=== PATIENT | female | born 1970 | race Caucasian/White ===

== ENCOUNTER 2018-09-13 14:31 | Inpatient (IN) | payer OTHER ==
[~2018-09-13] VITALS: Ht 157.5 cm; Wt 114.5 kg
[2018-09-13 14:36] VITALS: BP 190/99
[2018-09-13] MEDS ORDERED: PLAVIX 75 MG TA75 M1 PO (14:39)
[2018-09-13] MEDS ORDERED: METFORMIN HCL500 MG PO (14:39)
[2018-09-13] MEDS ORDERED: LIPITOR 20 MG T20 M1 PO (14:40)
[2018-09-13] MEDS ORDERED: KAPSPARGO SPRIN25 MG PO (14:40)
[2018-09-13 14:57] LABS: ABSOLUTE BASOPHILS 0.1 thou/uL (0.0-0.2); ABSOLUTE EOSINOPHILS 0.1 thou/uL (0.0-0.7); ABSOLUTE LYMPHOCYTES 2.9 thou/uL (0.8-5.3); ABSOLUTE MONOCYTES 0.6 thou/uL (0.0-1.2); ABSOLUTE NEUTROPHILS 2.8 thou/uL (1.6-8.1); BASOPHILS 1.3 %; EOSINOPHILS 1.5 %; HEMATOCRIT 40.3 % (37.0-47.0); HEMOGLOBIN 13.8 gm/dL (12.0-15.0); LYMPHOCYTES 44.7 %; MCH 27.1 pg (26.0-34.0); MCHC 34.3 g/dL (28.0-37.0); MONOCYTES 9.2 %; MPV 6.9 fl. (7.2-11.1); NUCLEATED RBCS 0 /100WBC; PLATELET COUNT* 163 thou/uL (150-400); POLYS 43.3 %; RBC 5.11 mil/uL (4.20-5.00); RDW-CV 14.9 % (10.5-14.5); WBC 6.4 thou/uL (4.0-11.0)
[2018-09-13 15:04] LABS: ANION GAP 13 mmol/L (7-16); BUN 13 mg/dL (7-18); CALCIUM 8.5 mg/dL (8.5-10.1); CHLORIDE 102 mmol/L (98-107); CO2 25 mmol/L (21-32); CREATININE 0.7 mg/dL (0.6-1.3); GLUCOSE 284 mg/dL (70-99); POTASSIUM 3.8 mmol/L (3.5-5.1); SODIUM 140 mmol/L (136-145)
[2018-09-13 15:15] LABS: ALBUMIN 3.6 g/dL (3.4-5.0); ALKALINE PHOSPHATASE 80 U/L (46-116); LIPASE 117 U/L (73-393); MAGNESIUM 1.4 mg/dL (1.8-2.4); NT-PRO BRAIN NAT PEPTIDE 44 pg/mL (<300); SGOT 25 U/L (15-37); SGPT 44 U/L (30-65); TOTAL BILIRUBIN 0.3 mg/dL (<0.1-1.0); TOTAL PROTEIN 6.7 g/dL (6.4-8.2); TROPONIN-I LEVEL <0.06 ng/mL (<0.06)
[2018-09-13 17:55] VITALS: BP 168/88
[2018-09-13 18:00] VITALS: BP 180/94
[2018-09-13 19:15] VITALS: BP 185/84
[2018-09-13 20:39] LABS: AMP/METHAMP Negative (Negative); BARBITURATES Negative (Negative); BENZODIAZEPINES Negative (Negative); COCAINE Negative (Negative); METHADONE Negative (Negative); OPIATES Negative (Negative); PCP Negative (Negative); THC Negative (Negative)
[2018-09-14] VITALS (17 sets, daily range): BP systolic 142–191; BP diastolic 63–107
[2018-09-14 04:46] LABS: ABSOLUTE EOSINOPHILS 0.2 thou/uL (0.0-0.7); ABSOLUTE LYMPHOCYTES 2.7 thou/uL (0.8-5.3); ABSOLUTE MONOCYTES 0.8 thou/uL (0.0-1.2); ABSOLUTE NEUTROPHILS 2.8 thou/uL (1.6-8.1); BASOPHILS 0.6 %; EOSINOPHILS 2.5 %; HEMATOCRIT 36.8 % (37.0-47.0); HEMOGLOBIN 12.6 gm/dL (12.0-15.0); MCH 27.3 pg (26.0-34.0); MCHC 34.1 g/dL (28.0-37.0); MCV 80.1 fL (80.0-100.0); MONOCYTES 12.1 %; MPV 7.1 fl. (7.2-11.1); NUCLEATED RBCS 0 /100WBC; PLATELET COUNT* 121 thou/uL (150-400); POLYS 43.8 %; RDW-CV 14.9 % (10.5-14.5); WBC 6.5 thou/uL (4.0-11.0)
[2018-09-14 04:52] LABS: CALCIUM 8.6 mg/dL (8.5-10.1); CREATININE 0.6 mg/dL (0.6-1.3); POTASSIUM 3.9 mmol/L (3.5-5.1)
--- NOTE | 2018-09-14 13:02 | CARD ---
[address] [address] CARDIAC CATH REPORT Name: DORA BLAND PADMINI Room: 220-[facility] IN M.R.#: [id number] Admission: 09/13/18 Attend Phys: Gamal Lemus MD Discharge: Date of : 70 Report #: [id number] THIS REPORT FOR: //name// APPROVED REPORT Study performed: 09/14/2018 10:03:58 Patient Details Patient Status: In-Patient Room #: 220 The patient is a 48 year-old female Event Personnel Eliecer Canales Optometry Professor, Azeb Raman Textiles Sales Representative , Rashid Rizzo (R) Monitor, Wilbur Moyer Scrub Procedures Performed Left Heart Cath w/or w/o Coronaries Indication Unstable angina Risk Factors Hypercholesterolemia, Hypertension, Diabetes Previous Procedures/Diagnoses Previous PCI Procedure Narrative The patient was brought electively to the Cardiac Catheterization Laboratory and was prepped and draped in a sterile manner. The right femoral was infiltrated with 1% Lidocaine subcutaneous anesthesia. A 6fr Ultimum Sheath sheath was inserted into the right femoral artery. Coronary angiography was performed using coronary diagnostic catheters. The right coronary system was accessed and visualized with a Diagnostic JR4 catheter. The left coronary system was accessed and visualized with a Diagnostic JL4 catheter. The left ventricle was accessed and visualized with a Diagnostic PC: Pig 6fr catheter. Left ventricular/Aortic Valve gradient assessed via catheter pullback. Left ventriculogram was performed in JOHNS projection. Closure device was deployed with a 6 Fr Mynx 6Fr/7Fr. The patient tolerated the procedure well and there were no complications associated with the procedure. There was no hematoma. Intraoperative Conscious Sedation Sedation start time: 10:57 Case end Time: [place] [address] CARDIAC CATH REPORT Name: BALDODORA ANN Room: [address] IN [facility]#: [id number] Admission: 09/13/18 Attend Phys: Gamal Lemus MD Discharge: Date of : 70 Report #: [id number] 11:32 Fentanyl 50 mcg Versed 4 mg Fluoro Time: 3.3 minutes Dose: DAP 66607 cGycm2 914 mGy Contrast Type and Amount: Omnipaque 100 ml Coronary Angiography The patient's coronary anatomy is co- dominant. Diagnostic Cath Left Main 0% stenosis LAD 0% stenosis Circumflex proximal stent with 0% stenosis Right Coronary long stent noted in mid rca with 50% proximal restenosis and 50% distal restenosis R PDA 50% mid stenosis Left Ventriculography The left ventricular ejection fraction is estimated to be 55-60%. Left ventricular wall motion abnormalities are not present. There is no mitral insufficiency. Hemodynamics The aortic pressure is 160/86 mmHg with a mean of 118 mmHg. The left ventricular pressure is 171/12 mmHg with a mean of mmHg. The left ventricular end diastolic pressure is 20 mmHg. There was no gradient across the aortic valve upon pullback. Pullback from the left ventricle to the aorta revealed no gradient across the aortic valve. Conclusion 1. no significant restenosis noted of stents in the proximal circumflex and mid rca 2. LVEF 55-60% 3. suspect noncardiac chest pain Recommendations Cardiac Rehabilitation Referral Aggressive Medical Therapy <ELECTRONICALLY SIGNED> By: Eliecer Canales MD, [facility] 09/14/18 1301 1301 1301Dmainor Canales MD, FAC /INF
--- NOTE | 2018-09-14 13:05 | CON ---
[address] [address] CONSULTATION Name: DORA BLAND Room: [address] ADM IN M.R.#: [id number] Admission: 09/13/18 Attend Phys: Gamal Lemus MD Discharge: Date of : 70 Report #: [id number] THIS REPORT FOR: //name// CC: Gamal Lemus [facility] physician/PCP DATE OF SERVICE: 09/14/2018 HISTORY OF PRESENT ILLNESS: The patient is a 48-year-old white female who I was asked to see in the hospital today after she complained of chest pain. The patient has an extensive past medical history. Unfortunately, none of her old records are available. The patient apparently had 2 coronary artery stents placed in 2011. She had another stent placed in 2015. Her last stent was placed in 2017. These have all been done in [place]. She recently just traveled from [place] to [place] to move. Her is retired and they drove. There are now staying in a hotel until they rent an apartment. She was doing well until yesterday about noon, she felt a pain in her chest, went down her left arm, she became short of breath, nauseated, and diaphoretic. The pain tended to wax and wane. She came to the hospital and was admitted. I was asked to see her for further evaluation and treatment. She denied the pain being related to food. She has had no bleeding. Denied any cough. She denies exertional dyspnea. She notes occasional skipped heartbeat, but no syncope. PAST MEDICAL HISTORY: She has had tubal ligation, appendectomy, tonsillectomy. She has a history of hypertension, diabetes, hyperlipidemia. MEDICATIONS: Include Lipitor, Plavix, metformin, metoprolol, Victoza. ALLERGIES: SHE HAS CONTRAST ALLERGY. FAMILY HISTORY: Her mother had a permanent pacemaker. SOCIAL HISTORY: She is . She is on disability because of her heart disease. No smoking, no alcohol abuse. REVIEW OF SYSTEMS: She is overweight, being 5 feet 2 inches, 250 pounds. She has had no history of stroke, asthma, peptic ulcer disease. She has been told she had an enlarged liver. She has been through menopause. No kidney disease. No psychiatric illness. No chronic skin condition. PHYSICAL EXAMINATION: GENERAL: Revealed an obese young female, lying in bed. She appeared in no acute distress. VITAL SIGNS: Showed blood pressure 140/60, pulse of 60. She is afebrile. HEENT: She was anicteric, conjunctivae pink. Mucous membranes moist. NECK: Veins nondistended. A left carotid [place] [address] CONSULTATION Name: DORA BLAND Room: [address] IN M.R.#: [id number] Admission: 09/13/18 Attend Phys: Gamal Lemus MD Discharge: Date of : 70 Report #: [id number] CHEST: Clear to auscultation. CARDIAC: Regular rate and rhythm. ABDOMEN: Obese. EXTREMITIES: Had no edema. Dorsalis pedis pulse 2+ bilaterally. SKIN: Warm and dry. NEUROLOGIC: Nonfocal. LYMPH: No adenopathy. MUSCULOSKELETAL: No joint effusion. DIAGNOSTIC DATA: Her ECG done yesterday showed a sinus rhythm, nonspecific ST-segment changes. Her workup in the Emergency Room yesterday, she had a portable chest x-ray that showed cardiomegaly, poor inspiration, some atelectasis. LABORATORY DATA: Sodium 140, creatinine 0.6, glucose 261. Liver function studies were normal. Troponin is 0.06. White blood cell count 6.5, hemoglobin 12.6. IMPRESSION AND RECOMMENDATIONS: 1. Unstable angina. Recommend repeat cardiac catheterization. 2. Hypertension. The patient has been on a beta-skylar. 3. Diabetes. 4. Hyperlipidemia. The patient is on a statin drug. 5. Obesity. <ELECTRONICALLY SIGNED> By: Eliecer Canales MD, [facility] 09/14/18 1305 0934 [id number] Canales MD, [facility] /nt
--- NOTE | 2018-09-16 10:38 | EKG ---
[place] [address] ELECTROCARDIOGRAM REPORT Name: DORA BLAND Room: [address] IN R.#: [id number] Admission: 09/13/18 Attend Phys: Gamal Lemus MD Discharge: 09/14/18 Date of : 70 Report #: [id number] THIS REPORT FOR: //name// [facility] ED Test Date: 2018-09-13 Test Time: 14:36:40 Pat Name: DORA BLAND Department: Room: [facility] Gender: F Flakeboard Line Tender: BRENDAN : 1970 Requested By: Ike Ruiz Order Number: [id number] MD: Eliecer Canales Measurements Intervals [place] Rate: 116 P: 64 MS: 154 QRS: -6 QRSD: 97 T: 63 QT: 333 QTc: 463 Interpretive Statements Sinus tachycardia Probable left atrial enlargement Minimal ST depression, lateral leads Baseline wander in lead(s) V2 No previous ECG available for comparison Electronically Signed On 09-16-2018 10:38:15 CDT by Eliecer Canales [email or web address] <ELECTRONICALLY SIGNED> By: Eliecer Canales MD, [facility] 09/16/18 1038 1436 1436 Eliecer Canales MD, [facility] /EPI
--- NOTE | 2018-09-16 10:40 | EKG ---
[place] [address] ELECTROCARDIOGRAM REPORT Name: DORA BLAND Room: [address] DIS IN M.R.#: [id number] Admission: 09/13/18 Attend Phys: Gamal Lemus MD Discharge: 09/14/18 Date of : 70 Report #: [id number] THIS REPORT FOR: //name// [facility] Test Date: 2018-09-13 Test Time: 18:33:38 Pat Name: DORA BLAND Department: Room: [address] Gender: F Coach Professional Athletes: UNKNOWN : 1970 Requested By: Gamal Lemus Order Number: [id number] Dandre MD: Eliecer Canales Measurements Intervals [place] Rate: 102 P: 53 OK: 133 QRS: -13 QRSD: 80 T: 87 QT: 420 QTc: 548 Interpretive Statements Sinus tachycardia with short pr interval Borderline T abnormalities, anterior leads Prolonged QT interval Electronically Signed On 09-16-2018 10:39:56 CDT by Eliecer Canales [email or web address] <ELECTRONICALLY SIGNED> By: Eliecer Canales MD, [facility] 09/16/18 1039 1833 183 Eliecer Canales MD, FAC /EPI
== END 2018-09-14 17:05 | disposition left against medical advice (07) | DRG 287 ==
LOC: M.ERS 14:31 → M.TBA-ER 15:22 → M.2W 17:47
PROVIDERS: Emergency Medicine Emergency Medical Services; ADMIT Internal Medicine
PROC: 4A023N7 Measurement of Cardiac Sampling and Pressure, Left Heart, Percutaneous Approach (ICD-10-PCS; principal; 2018-09-14)
PROC: B2111ZZ Fluoroscopy of Multiple Coronary Arteries using Low Osmolar Contrast (ICD-10-PCS; principal; 2018-09-14)
PROC: B2151ZZ Fluoroscopy of Left Heart using Low Osmolar Contrast (ICD-10-PCS; principal; 2018-09-14)
DX: R07.89 Other chest pain (principal); I25.110 Atherosclerotic heart disease of native coronary artery with unstable angina pectoris; Z68.42 Body mass index [BMI] 45.0-49.9, adult; I10 Essential (primary) hypertension; E11.9 Type 2 diabetes mellitus without complications; E78.00 Pure hypercholesterolemia, unspecified; E66.01 Morbid (severe) obesity due to excess calories; Z53.21 Procedure and treatment not carried out due to patient leaving prior to being seen by health care provider; Z95.5 Presence of coronary angioplasty implant and graft; Z90.49 Acquired absence of other specified parts of digestive tract; Z79.02 Long term (current) use of antithrombotics/antiplatelets; Z76.5 Malingerer [conscious simulation]; Z79.84 Long term (current) use of oral hypoglycemic drugs; Z79.899 Other long term (current) drug therapy; Z88.8 Allergy status to other drugs, medicaments and biological substances; Z91.041 Radiographic dye allergy status; Z82.49 Family history of ischemic heart disease and other diseases of the circulatory system

== ENCOUNTER 2018-09-22 19:35 | Inpatient (IN) | payer OTHER ==
[~2018-09-22] VITALS: Ht 157.5 cm; Wt 111.1 kg
--- NOTE | ~2018-09-22 | CARD ---
[address] [address] CARDIAC CATH REPORT Name: DORA BLAND Room: [address] IN M.R.#: [id number] Admission: 09/22/18 Attend Phys: Nicolas Wilcox Discharge: 09/27/18 Date of : 70 Report #: [id number] THIS REPORT FOR: //name// CC: [facility] physician/PCP German Parmar PROCEDURE: DC cardioversion after transesophageal echocardiogram. INDICATION: Persistent atrial flutter. DESCRIPTION OF PROCEDURE: After informed consent was obtained, a transesophageal echocardiogram was performed and was reported separately. Assuring adequate sedation, the patient then received a single biphasic shock of 300 joules converting from atrial flutter to normal sinus rhythm. The patient tolerated the procedure well without complication. IMPRESSION: 1. Persistent atrial fibrillation. 2. Successful MYRA-guided cardioversion to normal sinus rhythm. By: 1825 [id number] Lance MD, FACC /nt
[~2018-09-22 19:35] MED LIST: LIPITOR 20 MG T20 M1 PO; METFORMIN HCL500 MG PO; PLAVIX 75 MG TA75 M1 PO; TOPROL XL25 MG PO
[2018-09-22 20:04] LABS: ABSOLUTE BASOPHILS 0.1 thou/uL (0.0-0.2); ABSOLUTE EOSINOPHILS 0.1 thou/uL (0.0-0.7); ABSOLUTE LYMPHOCYTES 3.5 thou/uL (0.8-5.3); ABSOLUTE MONOCYTES 0.7 thou/uL (0.0-1.2); ABSOLUTE NEUTROPHILS 3.2 thou/uL (1.6-8.1); BASOPHILS 1.4 %; HEMATOCRIT 39.7 % (37.0-47.0); HEMOGLOBIN 13.5 gm/dL (12.0-15.0); LYMPHOCYTES 46.3 %; MCH 27.2 pg (26.0-34.0); MCHC 33.9 g/dL (28.0-37.0); MCV 80.4 fL (80.0-100.0); MONOCYTES 9.2 %; MPV 7.4 fl. (7.2-11.1); NUCLEATED RBCS 0 /100WBC; PLATELET COUNT* 177 thou/uL (150-400); POLYS 42.1 %; RBC 4.94 mil/uL (4.20-5.00); WBC 7.6 thou/uL (4.0-11.0)
[2018-09-22 20:14] LABS: PROTIME 10.1 Seconds (9.20-11.50)
[2018-09-22 20:16] LABS: ANION GAP 11 mmol/L (7-16); BUN 13 mg/dL (7-18); CALCIUM 9.5 mg/dL (8.5-10.1); CHLORIDE 102 mmol/L (98-107); CO2 26 mmol/L (21-32); CREATININE 0.8 mg/dL (0.6-1.3); GLUCOSE 327 mg/dL (70-99); POTASSIUM 4.6 mmol/L (3.5-5.1); SODIUM 139 mmol/L (136-145)
[2018-09-22 20:28] LABS: ALBUMIN 3.5 g/dL (3.4-5.0); ALKALINE PHOSPHATASE 89 U/L (46-116); NT-PRO BRAIN NAT PEPTIDE 543 pg/mL (<300); SGOT 22 U/L (15-37); SGPT 34 U/L (30-65); TOTAL BILIRUBIN 0.4 mg/dL (<0.1-1.0); TROPONIN-I LEVEL <0.06 ng/mL (<0.06)
[2018-09-22 21:12] LABS: URINE BILIRUBIN NEGATIVE (Negative); URINE BLOOD TRACE (Negative); URINE CLARITY CLEAR; URINE COLOR YELLOW; URINE GLUCOSE-RANDOM 3+ (Negative); URINE KETONES NEGATIVE (Negative); URINE LEUKOCYTES-REFLEX NEGATIVE (Negative); URINE NITRITE-REFLEX NEGATIVE (Negative); URINE PROTEIN 1+ (Negative)
[2018-09-22 23:30] VITALS: BP 130/68
[2018-09-23] VITALS: BP 119/93
[2018-09-23 04:00] VITALS: BP 101/61
--- NOTE | 2018-09-23 05:40 | NUR ---
PATIENT ARRIVED ON THE FLOOR FROM THE ER ABOUT 2330. PATIENT ADMISSION HISTORY AND ASSESSMENT WAS COMPLETED CHARTED. PATIENT REMAINS AFLUTTER ON THE MONITOR 70'S TO 90'S AT REST BUT STILL GETS UP TO 140 WITH ACTIVITY. CARDIZEM DRIP REMAINS AT 10 MG AN HOUR. PATIENT WAS GIVEN MORPHINE ONCE FOR CHEST PAIN. PATIENT GOT DIZZY ON THE WAY BACK TO THE BATHROOM THIS MORNING. VITALS WERE STABLE AND BLOOD SUGAR WAS 277 AT THAT TIME. PATIENT REQUESTED TO BE PUT ON OXYGEN FOR SOA SATS WERE FINE ON ROOM AIR AT 97% BUT PATIENT IS ON 2L PER NC NOW. WILL CONTINUE TO MONITOR.
[2018-09-23 08:21] VITALS: BP 131/93
--- NOTE | 2018-09-23 11:16 | NUR ---
Pt is A&O. Resides at home with her and son. Pt states that she was independent up until last week when she had a cath, now Pt states that her gait is unsteady. No DME. No hx of HH or SNF. Goal is home.
[2018-09-23 11:32] LABS: AMP/METHAMP Negative (Negative); BARBITURATES Negative (Negative); BENZODIAZEPINES Negative (Negative); COCAINE Negative (Negative); METHADONE Negative (Negative); OPIATES POSITIVE (Negative); PCP Negative (Negative); THC Negative (Negative)
[2018-09-23 12:00] VITALS: BP 124/68
--- NOTE | 2018-09-23 12:46 | NUR ---
patient upset. she clamped her cardizem gtt. instructed patient on the importance of not to disturb IV tubing or IV pump and explained the risk of patient harming self if she adjusted the IV medication. patient requesting pain medicine. dr antonio notified. toradol ordered and given. stevan, internet marketing specialist instructed on the importance of taking cardizem gtt. patient allowed me to turn back her cardizem gtt on.
[2018-09-23 16:00] VITALS: BP 150/88
--- NOTE | 2018-09-23 17:14 | 2DMMODE ---
[place] [address] 2 D/M-MODE ECHOCARDIOGRAM Name: BALDODORA PADMINI Room: [address] IN [facility]#: [id number] Admission: 09/22/18 Attend Phys: German Parmar Discharge: Date of : 70 Date of Service: 09/23/18 1714 Report #: [id number] THIS REPORT FOR: //name// APPROVED REPORT Study performed: 09/23/2018 10:00:11 EXAM: Comprehensive 2D, Doppler, and color-flow Echocardiogram Patient Location: In-Patient Room #: 218 Status: routine BSA: 2.10 HR: 75 bpm BP: 131/93 mmHg Rhythm: NSR Other Information Study Quality: Good Indications Syncope 2D Dimensions IVSd: 10.90 (7-11mm) LVOT Diam: 21.84 (18-24mm) LVDd: 53.98 mm PWd: 11.66 (7-11mm) Ascending Ao: 32.52 (22-36mm) LVDs: 34.00 (25-40mm) Aortic Root: 29.48 mm Volumes Left Atrial Volume (Systole) LA ESV Index: 26.60 mL/m2 Aortic Valve AoV Peak Eduard.: 2.17 m/s AO Peak Gr.: 18.77 mmHg LVOT Max P.16 mmHg AO Mean Gr.: 11.47 mmHg LVOT Mean P.78 mmHg LVOT Max V: 0.89 m/s AO V2 VTI: 44.50 cm LVOT Mean V: 0.62 m/s ARLEN (VTI): 1.54 cm2 LVOT V1 VTI: 18.35 cm Mitral Valve E/A Ratio: 2.78 MV Decel. Time: 176.37 ms MV E Max Eduard.: 1.15 m/[place] [address] 2 D/M-MODE ECHOCARDIOGRAM Name: DORA BLAND Room: [address] IN .R.#: [id number] Admission: 09/22/18 Attend Phys: German Parmar Discharge: Date of : 70 Date of Service: 09/23/18 1714 Report #: [id number] MV PHT: 51.15 ms MVA (PHT): 4.30 cm2 TDI E/Lateral E': 10.45 E/Medial E': 8.85 Medial E' Eduard.: 0.13 m/s Lateral E' Eduard.: 0.11 m/s Pulmonary Valve PV Peak Eduard.: 0.79 m/s PV Peak Gr.: 2.51 mmHg Tricuspid Valve RAP Estimate: 5.00 mmHg TR Peak Gr.: 22.95 mmHg RVSP: 28.00 mmHg PA Pressure: 28.00 mmHg Left Ventricle The left ventricle is normal size. There is normal LV segmental wall motion. There is normal left ventricular wall thickness. Left ventricular systolic function is normal. The left ventricular ejection fraction is within the normal range. LVEF is 55-60%. The left ventricular diastolic function is normal. Right Ventricle The right ventricle is normal size. The right ventricular systolic function is normal. Atria The left atrium size is normal. The right atrium size is normal. Aortic Valve Moderate aortic valve sclerosis. No aortic regurgitation is present. Mild aortic stenosis. Mitral Valve The mitral valve is normal in structure. Trace mitral regurgitation. No evidence of mitral valve stenosis. Tricuspid Valve The tricuspid valve is normal in structure. Trace tricuspid regurgitation. No pulmonary hypertension. Pulmonic Valve The pulmonary valve is normal in structure. There is no pulmonic valvular [place] [address] 2 D/M-MODE ECHOCARDIOGRAM Name: DORA BLAND PADMINI Room: [address] IN [facility].#: [id number] Admission: 09/22/18 Attend Phys: German Parmar Discharge: Date of : 70 Date of Service: 09/23/18 1714 Report #: [id number] Great Vessels The aortic root is normal in size. IVC is normal in size and collapses >50% with inspiration. Pericardium There is no pericardial effusion. <Conclusion> There is normal left ventricular wall thickness. Left ventricular systolic function is normal. The left ventricular ejection fraction is within the normal range. LVEF is 55-60%. The right ventricle is normal size. The left atrium size is normal. Moderate aortic valve sclerosis. No aortic regurgitation is present. Mild aortic stenosis. The mitral valve is normal in structure. Trace mitral regurgitation. The tricuspid valve is normal in structure. IVC is normal in size and collapses >50% with inspiration. There is normal LV segmental wall motion. The left ventricle is normal size. <ELECTRONICALLY SIGNED> By: Clifford Ron MD, FACC 09/23/18 1714 13 13 Clifford Ron MD, FACC /INF
--- NOTE | 2018-09-23 17:49 | NUR ---
VSS, ASSUMED CARE IN THE AM, ASSESSMENT PERFORMED AND CHARTED, FALL PRECAUTIONS IN PLACE AND CALL LIGHT IN REACH, PT IS A&O4 AND ON RA AND IS AFLUTTER ON THE MONITOR, PT STATES PAIN ON HER CHEST, PT STATES SHE IS UNHAPPY WITH OUR CARE AND STATES HER DISLIKE FOR DR GARCIA, SHE IS NONE COMPLIANT WITH OUR CARE VIA STOPPING IV DRIPS AND PULLING ON IV'S, SHE YELLS OUT, SHE UP WITH STAND BY, AND HER GOAL IS TO STOP CHEST PAIN, AT THIS TIME PT DENIES ANY PAIN WILL FOLLOW WITH PLAN OF CARE.
--- NOTE | 2018-09-23 17:56 | EKG ---
[place] [address] ELECTROCARDIOGRAM REPORT Name: DORA BLAND Room: [address] ADM IN .R.#: [id number] Admission: 09/22/18 Attend Phys: Nicolas Wilcox Discharge: Date of : 70 Report #: [id number] THIS REPORT FOR: //name// [facility] ED Test Date: 2018-09-22 Test Time: 19:40:56 Pat Name: DORA BLAND Department: Room: [facility] Gender: F Servicer Coin Machines: KATERIN : 1970 Requested By: Fany Hendricks Order Number: [id number] MD: Siva Lance Measurements Intervals [place] Rate: 153 P: 246 CO: 123 QRS: -48 QRSD: 77 T: 123 QT: 315 QTc: 503 Interpretive Statements Atrial tachycardia, possible atrial flutter with 2 to one conduction Left anterior fascicular block Repol abnrm suggests ischemia, diffuse leads Baseline wander in lead(s) II,V1,V2,V3 Compared to ECG 09/13/2018 18:33:38 Early repolarization now present Possible ischemia now present Sinus tachycardia no longer present Short CO interval no longer present Electronically Signed On 09-23-2018 17:56:12 CDT by Siva Lance [email or web address] <ELECTRONICALLY SIGNED> By: Siva Lance MD, [facility] 09/23/18 1756 39 39 Siva Lance MD, FAC /EPI
--- NOTE | 2018-09-23 17:57 | EKG ---
[place] [address] ELECTROCARDIOGRAM REPORT Name: DORA BLAND Room: [address] ADM IN M.R.#: [id number] Admission: 09/22/18 Attend Phys: Nicolas Wilcox Discharge: Date of : 70 Report #: [id number] THIS REPORT FOR: //name// [facility] ED Test Date: 2018-09-22 Test Time: 20:08:28 Pat Name: DORA BLAND Department: Room: [facility] Gender: F Senior Support Analyst: : 1970 Requested By: Terra Real Order Number: [id number] MD: Siva Lance Measurements Intervals [place] Rate: 151 P: MD: QRS: -38 QRSD: 143 T: 78 QT: 308 QTc: 489 Interpretive Statements Atrial flutter with predominant 2:1 AV block Left axis deviation Borderline T abnormalities, lateral leads Compared to ECG 09/13/2018 18:33:38 Significant change is not appreciated Electronically Signed On 09-23-2018 17:57:05 CDT by Siva Lance [email or web address] <ELECTRONICALLY SIGNED> By: Siva Lance MD, FACC 09/23/18 1757 07 07 Siva Lance MD, FAC /EPI
[2018-09-23 20:30] VITALS: BP 138/67
--- NOTE | 2018-09-23 22:55 | NUR ---
INITAL ASSESMENT COMPLETED AT 2030. PT REPORTED CHEST PAIN AT THAT TIME. PT ALSO REPORTED ITCHING AND NAUSEA. PT GIVEN IV ZOFRAN AND TORADOL. PT REPORTED IV BURNING AND STATED IT WENT BAD DURING DAY SHIFT. CALLED DR FINN AND RECIEVED ORDER FOR PO BENADRYL AND ZOFRAN. REPORTED PT'S CHEST PAIN, NO ORDERS RECIEVED FOR PAIN. PT UP TO BEDSIDE COMMODE AT 2230. PT REPORTED CHEST PAIN. HEART RATE 120-130. SALINE LOCK STARTED IN RIGHT HAND. DR HDEZ PAGED.
[2018-09-23 23:06] LABS: GLYCOHEMOGLOBIN (HGB A1C) 9.2 % (4.8-5.6)
[2018-09-24] VITALS: BP 138/82
[2018-09-24 04:00] VITALS: BP 105/71
[2018-09-24 04:35] LABS: ABSOLUTE BASOPHILS 0.1 thou/uL (0.0-0.2); ABSOLUTE EOSINOPHILS 0.1 thou/uL (0.0-0.7); ABSOLUTE LYMPHOCYTES 2.8 thou/uL (0.8-5.3); ABSOLUTE MONOCYTES 0.9 thou/uL (0.0-1.2); BASOPHILS 0.6 %; EOSINOPHILS 1.6 %; HEMATOCRIT 36.5 % (37.0-47.0); HEMOGLOBIN 12.4 gm/dL (12.0-15.0); LYMPHOCYTES 35.5 %; MCH 27.5 pg (26.0-34.0); MCHC 34.1 g/dL (28.0-37.0); MCV 80.5 fL (80.0-100.0); MONOCYTES 11.1 %; MPV 7.8 fl. (7.2-11.1); NUCLEATED RBCS 0 /100WBC; PLATELET COUNT* 171 thou/uL (150-400); POLYS 51.2 %; RBC 4.53 mil/uL (4.20-5.00); RDW-CV 15.2 % (10.5-14.5); WBC 7.9 thou/uL (4.0-11.0)
[2018-09-24 04:38] LABS: ANION GAP 4 mmol/L (7-16); BUN 15 mg/dL (7-18); CHLORIDE 102 mmol/L (98-107); CHOLESTEROL 189 mg/dL (<200); CO2 31 mmol/L (21-32); CREATININE 0.7 mg/dL (0.6-1.3); GLUCOSE 247 mg/dL (70-99); HDL CHOLESTEROL 32 mg/dL (>40); LDL CHOLESTEROL 80 mg/dL (<100); POTASSIUM 4.5 mmol/L (3.5-5.1); SODIUM 137 mmol/L (136-145); TC:HDL 5.9 Ratio (Not establshd); TRIGLYCERIDE 385 mg/dL (<150); VLDL 77 mg/dL (<40)
[2018-09-24 04:42] LABS: SERUM ASSESSMENT Slight Lipemia
[2018-09-24 05:01] LABS: CALCIUM 9.1 mg/dL (8.5-10.1)
--- NOTE | 2018-09-24 06:17 | NUR ---
PT HAD SUSTAINED HEART RATE > 120. RECIEVED ORDERS TO RESTART CARDIZEM DRIP. PT RECIEVING 10 MG/HR SINCE 299. HEART RATE < 100 SINCE THAT TIME. BLOOD PRESSURE EITHIN NORMAL LIMITS. PT RECIEVING RELIEF FROM IV TORADOL.
[2018-09-24 08:00] VITALS: BP 141/87
[2018-09-24 11:30] VITALS: BP 147/85
--- NOTE | 2018-09-24 15:55 | EKG ---
[place] [address] ELECTROCARDIOGRAM REPORT Name: DORA BLAND Room: [address] ADM IN M.R.#: [id number] Admission: 09/22/18 Attend Phys: Nicolas Wilcox Discharge: Date of : 70 Report #: [id number] THIS REPORT FOR: //name// [facility] Test Date: 2018-09-24 Test Time: 09:31:45 Pat Name: DORA BLAND Department: Room: [address] Gender: F Alcohol Rubber: : 1970 Requested By: Clifford Ron Order Number: [id number] MD: Siva Lance Measurements Intervals [place] Rate: 86 P: MT: QRS: -15 QRSD: 137 T: 13 QT: 346 QTc: 414 Interpretive Statements Atrial flutter with predominant 3:1 AV block Compared to ECG 09/22/2018 20:08:28 AV block, advanced (high-grade) now present Atrial flutter rate slowed Electronically Signed On 09-24-2018 15:55:31 CDT by Siva Lance [email or web address] <ELECTRONICALLY SIGNED> By: Siva Lance MD, FACC 09/24/18 1555 0931 0931 Siva Lance MD, FAC /EPI
[2018-09-24 16:00] VITALS: BP 143/81
--- NOTE | 2018-09-24 19:02 | NUR ---
ASSUMED PT CARE AT 0700, A&O X4, VSS, RA, ACTIONSCRIPT DEVELOPER CONT TO TRACE AFLUTTER, NEW ORDERS RECVD FROM CARDIOLOGY THIS SHIFT, PT TOLERATED WELL. PT CONT TO C/O CHEST PAIN AT TIMES, NEW ORDER FOR ASA 325MG. UP AD ANGELIQUE, FULL ASSESSMENT CHARTED. HOURLY ROUNDING COMPLETED.
[2018-09-24 19:30] VITALS: BP 111/69
[2018-09-25] VITALS: BP 109/79
[2018-09-25 03:53] VITALS: BP 94/55
[2018-09-25 05:51] LABS: CALCIUM 9.9 mg/dL (8.5-10.1); CREATININE 0.7 mg/dL (0.6-1.3); MAGNESIUM 1.6 mg/dL (1.8-2.4); POTASSIUM 4.9 mmol/L (3.5-5.1)
--- NOTE | 2018-09-25 07:49 | NUR ---
VSS. SEE MAR. SEE CHARTING. FALL PRECAUTIONS IN PLACE. HOURLY ROUNDING FOR SAFETY.
[2018-09-25 07:57] VITALS: BP 124/102
[2018-09-25 12:10] VITALS: BP 110/77
--- NOTE | 2018-09-25 13:29 | NUR ---
Nutrition: Pt admitted with a-flutter, chest pain. Assessed for high BMI. Wt is 246#. H/o DM, OBE, CAD/stents, HTN. CHO controlled diet. Albumin 3.5, BG 200s. On SSI, metformin. Per RN notes, pt seems to be unhappy with care here, noncompliant. Nutritionally, pt appears at a mild risk. GOALS: better BG control, good po intake on CHO controlled diet. Will follow up per protocol.
--- NOTE | 2018-09-25 15:52 | NUR ---
PT NOT PROGRESSING TOWARDS GOALS THIS SHIFT. REMAINS IN A FLUTTER WITH RATE CONTROLLED IN THE 90-100'S. ANTICIPATE MYRA CARDIOVERSION TOMORROW PER DR. GRAF. PT ACCIDENTLY PULLED OUT ANOTHER IV TO HAND THIS SHIFT. PT HAS HAD MULTIPLE IV ATTEMPTS WITHOUT SUCCESS. NO IV ACCESS AT THIS TIME. PT IS DIFFICULT TO PLEASE. ATTEMPTED TO MAKE NEEDS MET THIS SHIFT. NO OTHER CONCERNS AT THIS TIME. CLWR. WCTM.
[2018-09-25 16:02] VITALS: BP 106/45
[2018-09-25 19:40] VITALS: BP 120/70
[2018-09-26 00:30] VITALS: BP 90/58
[2018-09-26 04:00] VITALS: BP 119/75
--- NOTE | 2018-09-26 06:21 | NUR ---
PT IN AND OUT OF AFLUTTER FROM APROX 0230. VSS. SEE MAR. SEE CHARTING. HOURLY ROUNDING FOR SAFETY.
[2018-09-26 08:00] VITALS: BP 102/48
[2018-09-26] MEDS ORDERED: RANEXA500 MG PO (08:44)
[2018-09-26] MEDS ORDERED: FLECAINIDE ACET50 M1 PO (08:44)
[2018-09-26] MEDS ORDERED: ELIQUIS5 MG PO (08:44)
[2018-09-26] MEDS ORDERED: TOPROL XL25 MG PO (08:44)
[2018-09-26] MEDS ORDERED: CARDIZEM CD 30300 M1 PO (08:44)
[2018-09-26 11:11] VITALS: BP 138/90
[2018-09-26 11:30] VITALS: BP 145/102
--- NOTE | 2018-09-26 11:46 | NUR ---
Pt to dc to home post cath, CM provided Pt with Eliquis 30 day free card and cardiology provided Pt with samples. Case management to cover Pt's flecainide and diltiazem, CM to fax scripts to [facility] on , when Pt arrives back to the unit. Pt will need a cab voucher home, CM gave to Pt's nurse.
--- NOTE | 2018-09-26 17:50 | NUR ---
ASSUMED PT CARE AT 0800, AOX4, UP AD ANGELIQUE, 02 SAT 90'S RA. TRACING ATRIAL FLUTTER ON TELE. PT COMPLAINS OF CHEST,BACK PAIN. MEDS GIVEN. PT FOR ACCU CHECK. PT SUPPOSED TO HAVE CARDIOVERSION TODAY, HAD ANXIETY BEFORE THE PROCEDURE AND BACK OUT. RESCHED FOR TOMMOROW. NPO MIDNIGHT. AROUND 1544, PT HAD EPISODE OF CHEST PAIN, BP RUNS HIGH. PAIN RELIEVED BY 3X NITROGLYCERIN. EKG DONE. CARDIOLOGY NOTIFIED. AM ASSESSMENT CHARTED. HOURLY ROUNDING OBSERVED. CALL LIGHT WITHIN REACH. WILL CONTINUE TO MONITOR.
[2018-09-26 20:00] VITALS: BP 151/100
[2018-09-27] VITALS (18 sets, daily range): BP systolic 106–146; BP diastolic 45–100
--- NOTE | 2018-09-27 05:28 | NUR ---
ASSUMED CARE OF PT AFTER REPORT AT 1930. PT A&OX4. VSS. PHYSICAL ASSESSMENT COMPLETED AND CHARTED. PT ON RA. PT TRACING ST ON TELE. PT UPADLIB TO RESTROOM. PT COMPLAINED OF CHEST PAIN-REFUSED PAIN MED AT THE START OF THE SHIFT. COMPLAINED CHEST PAIN AGAIN IN AM WITH PAIN SCALE OF 10/10 AND RADIATES TO LEFT ARM- PAIN MEDS GIVEN AT THIS TIME. PT ABLE TO SLEEP AGAIN AND VERBALIZED PARTIAL RELIEF. PT ALSO COMPLAINED OF NAUSEA ONE TIME. INSTRUCTED ON NPO POST MIDNIGHT FOR CARDIOVERSION TODAY. COMMUNICATES UNDERSTANDING. CALL LIGHT WITHIN REACH.
--- NOTE | 2018-09-27 14:00 | NUR ---
ASUMED PT CARE AT 0800, AOX4, UP AD ANGELIQUE.O2 SAT 90'S RA. COMPLAIN OF PAIN AND NAUSEA. PT HAD CARDIOVERSION. FROM A FLUTTER NOW ON SINUS RHYTHM. FOR DISCHARGE TO TODAY. CARDIOLOGY OK TO DC. AM ASSESSMENT CHARTED. MEDS GIVEN PER MAR.HOURLY ROUNDING WILL CONTINUE TO MONITOR.
--- NOTE | 2018-09-27 15:59 | TEE ---
[place] [address] TRANSESOPHAGEAL ECHOCARDIOGRAM Name: BLANDDORA PADMINI Room: [address] IN [facility]#: [id number] Admission: 09/22/18 Attend Phys: German Parmar Discharge: Date of : 70 Date of Service: 09/27/18 1559 Report #: [id number] THIS REPORT FOR: //name// APPROVED REPORT Study performed: 09/27/2018 09:01:59 EXAM: Transesophageal Echocardiogram Patient Location: In-Patient Room #: 218 Status: routine BSA: 2.08 HR: 109 bpm BP: 146/95 mmHg Rhythm: NSR Other Information Study Quality: Good Indications Atrial Fibrillation Echo Enhancing Agent Indication: Rule out Shunt Agent(s) / Amount(s) Used: Agitated Saline 10 cc Procedure After obtaining informed consent, patient underwent transesophageal echo in the [facility]. Type of Sedation : Conscious Sedation Sedation was administered by Mamie Hernández RN. Sedation start time: 921 Case end Time: 937 Sedation was achieved intravenously with: Versed (6) Fentanyl (100) Transesophageal probe was inserted and advanced into esophagus without difficulty by Siva Lance MD, FACC. Echo enhancement indication: R/O Septal defect. Echo enhancement agent administered: Agitated Saline The MYRA was performed without complications. Synchronized Cardioversion acheived with 300 Joules after 1 attempt(s). Rhythm following Synchronized Cardioversion: Normal Sinus Rhythm Throughout the procedure, the blood pressure, pulse oximetry, cardiac rhythm, and rate were monitored. The patient tolerated the procedure without adverse effects. Recovery [address] [address] TRANSESOPHAGEAL ECHOCARDIOGRAM Name: DORA BLAND PADMINI Room: [address] IN ..#: [id number] Admission: 09/22/18 Attend Phys: German Parmar Discharge: Date of : 70 Date of Service: 09/27/18 1559 Report #: [id number] from conscious sedation was uneventful and vital signs were stable. Left Ventricle The left ventricle is normal size. There is normal LV segmental wall motion. There is normal left ventricular wall thickness. Left ventricular systolic function is normal. LVEF is 55-60%. Right Ventricle The right ventricle is normal size. The right ventricular systolic function is normal. Atria The left atrium size is normal. No thrombus is visualized in the left atrium or appendage. Interatrial septum is intact without evidence of ASD or PFO. The right atrium size is normal. Aortic Valve Moderate aortic valve sclerosis. No aortic regurgitation is present. Mild aortic stenosis. Mitral Valve The mitral valve is normal in structure. Trace mitral regurgitation. No evidence of mitral valve stenosis. Tricuspid Valve The tricuspid valve is normal in structure. Mild tricuspid regurgitation. Pulmonic Valve Pulmonic valve is not well visualized. Great Vessels The aortic root is normal in size. Pericardium There is no pericardial effusion. <Conclusion> The left ventricle is normal size. There is normal left ventricular wall thickness. Left ventricular systolic function is normal. LVEF is 55-60%. Interatrial septum is intact without evidence of ASD or PFO. Moderate aortic valve sclerosis. [place] [address] TRANSESOPHAGEAL ECHOCARDIOGRAM Name: BALDODORA ANN Room: [address] IN ..#: [id number] Admission: 09/22/18 Attend Phys: German Parmar Discharge: Date of : 70 Date of Service: 09/27/18 155 Report #: [id number] The left atrium size is normal. No thrombus is visualized in the left atrium or appendage. <ELECTRONICALLY SIGNED> By: Siva Lance MD, FACC 09/27/18 1559 58 58 Siva Lance MD, FACC /INF
--- NOTE | 2018-09-27 16:02 | NUR ---
MALT HOUSE OPERATOR INFORMED THAT PATIENT IS READY TO D/C TODAY AND WOULD NEED PRESCRIPTION ASSISTANCE AND CAB VOUCHER. D/C PAPERHANGER APPRENTICE ASSISTED THE PATIENT IN COMPLETING MEDICATION ASSISTANCE FORM AND FAXED TO [facility]. PATIENT INFORMS THAT SHE DOES NOT HAVE TRANSPORTATION TO GET TO [facility] TO PICK-UP MEDS. D/C PAPERHANGER APPRENTICE COMPETED CAB VOUCHER FORM AND GAVE TO BAIL BOND AGENT. INFORMED BAIL BOND AGENT OF NEED TO ARRNAGE TRANSPORT WITH 10-10 TAXI AND CAB VOUCHER WITH ONE STOP AT [facility] TO PICK-UP PATIENT'S PRESCRIPTION THEN TO HER RESIDENCE AT [facility]. D/C PAPERHANGER APPRENTICE INFORMED RN IN-CHARGE OF THE PATIENT OF ALL OF THE ABOVE INFO WELL. RN IN AGREEMENT. CM WILL REMAIN AVAILABLE TO ASSIST AND FOLLOW NEEDED.
--- NOTE | 2018-09-27 16:40 | EKG ---
[place] [address] ELECTROCARDIOGRAM REPORT Name: DORA BLAND Room: [address] ADM IN M.R.#: [id number] Admission: 09/22/18 Attend Phys: Nicolas Wilcox Discharge: Date of : 70 Report #: [id number] THIS REPORT FOR: //name// [facility] Test Date: 2018-09-26 Test Time: 16:06:49 Pat Name: DORA BLAND Department: Room: [address] Gender: F Certified Personal Chef: : 1970 Requested By: Nuno Aguila Order Number: [id number] Dandre MD: Clifford oRn Measurements Intervals [place] Rate: 113 P: [place]: QRS: -9 QRSD: 136 T: 123 QT: 295 QTc: 405 Interpretive Statements Atrial flutter with predominant 2:1 AV block Nonspecific intraventricular conduction delay Nonspecific repol abnormality, diffuse leads Compared to ECG 09/24/2018 09:31:45 2:1 AV block now present Intraventricular conduction delay now present Early repolarization now present Electronically Signed On 09-27-2018 16:40:31 CDT by Clifford Ron [email or web address] <ELECTRONICALLY SIGNED> By: Clifford Ron MD, [facility] 09/27/18 1640 1606 1606 Clifford Ron MD, [facility] /EPI
--- NOTE | 2018-09-27 16:46 | EKG ---
[place] [address] ELECTROCARDIOGRAM REPORT Name: DORA BLAND Room: [address] ADM IN M.R.#: [id number] Admission: 09/22/18 Attend Phys: Nicolas Wilcox Discharge: Date of : 70 Report #: [id number] THIS REPORT FOR: //name// [facility] Test Date: 2018-09-27 Test Time: 09:55:23 Pat Name: DORA BLAND Department: Room: [address] Gender: F Soap Maker: : 1970 Requested By: Siva Lance Order Number: [id number] Dandre MD: Clifford Ron Measurements Intervals [place] Rate: 76 P: 65 [place]: 168 QRS: -9 QRSD: 93 T: 80 QT: 382 QTc: 430 Interpretive Statements Sinus rhythm Probable left atrial enlargement Borderline T abnormalities, lateral leads Baseline wander in lead(s) I,II,III,aVR,aVL,aVF,V1,V2,V3,V4,V5,V6 Compared to ECG 09/24/2018 09:31:45 T-wave abnormality now present Atrial flutter no longer present AV block, advanced (high-grade) no longer present Electronically Signed On 09-27-2018 16:46:19 CDT by Clifford Ron [email or web address] <ELECTRONICALLY SIGNED> By: Clifford Ron MD, [facility] 09/27/18 1646 4 4 Clifford Ron MD, [facility] /EPI
--- NOTE | 2018-09-27 18:04 | NUR ---
DISCHARGED PLAN DISCUSS WITH THE PT. MEDICATION PACKET GIVEN. TELE REMOVED. REMINDED TO FOLLOW UP WITH CARDIOLOGY. ALL BELONGINGS PACKED AND CHECKED. LEFT THE UNIT VIA PAID CAB AT 1804.
--- NOTE | 2018-09-28 12:14 | CON ---
[address] [address] CONSULTATION Name: BALDODORA ANN Room: [address] IN M.R.#: [id number] Admission: 09/22/18 Attend Phys: Nicolas Wilcox Discharge: 09/27/18 Date of : 70 Report #: [id number] THIS REPORT FOR: //name// CC: SHELLI physician/PCP German Parmar DATE OF SERVICE: 09/23/2018 CARDIOLOGY CONSULTATION HISTORY OF PRESENT ILLNESS: The patient is a pleasant 48-year-old female who was admitted 09/22/2018 with a discomfort in the chest with radiation down the left arm, which was described as sharp and persistent. She was noted to have atrial flutter with a rapid ventricular response, treated with IV Cardizem and continuation of beta blockade. Rate has been modulated and the pain has diminished somewhat. There is underlying diabetes, hypertension, hyperlipidemia and weight excess. She underwent recent cardiac catheterization with no significant coronary artery disease defined. Her risk factors for coronary artery disease include hypertension, hypercholesterolemia and diabetes. PAST MEDICAL HISTORY: Remarkable for those problems as well as weight excess. ALLERGIES: SHE DESCRIBES ALLERGIES TO PENICILLIN AND CONTRAST. REVIEW OF SYSTEMS: Remarkable for the following: CARDIOVASCULAR: She describes a history of nearly passing out or passing out. ENDOCRINE: Has history of type 2 diabetes. GASTROINTESTINAL: There is a history of ulcers. HEMATOLOGIC AND LYMPHATIC: She has a history of atypical cells on prior Pap smears. ALLERGIC AND IMMUNOLOGIC: SHE NOTES SEASONAL ALLERGIES WELL CONTRAST AND PENICILLIN REACTIONS. SKIN: She has recent rashes. EYES: She wears glasses. Remainder unremarkable. PHYSICAL EXAMINATION: GENERAL: Reveals an overweight, middle-aged female. VITAL SIGNS: Blood pressure 130/70, pulse rate 75 and regular, respirations are 18 per minute. NECK: Jugular venous pressure is normal. Carotids are 1-2+. CHEST: [place] [address] CONSULTATION Name: DORA BLAND Room: [address]#: [id number] Admission: 09/22/18 Attend Phys: Nicolas Wilcox Discharge: 09/27/18 Date of : 70 Report #: [id number] CARDIAC: Reveals normal first and second heart sounds without rubs, murmurs, clicks or gallops. ABDOMEN: Obese. EXTREMITIES: Without edema. There are no deformity or arthritic changes. There are no petechiae or ecchymosis. LABORATORY DATA: Revealed atrial flutter with variable block, initially 2:1 block and currently 4:1 with a moderate response to 75 on IV Cardizem and beta blockade. IMPRESSION: 1. Atypical chest pain with a recent normal catheterization. 2. Atrial flutter with variable block. 3. Hypertension. 4. Hypercholesterolemia. 5. Type 2 diabetes. 6. Weight excess. RECOMMENDATIONS: 1. Agree with IV Cardizem for rate modulation. 2. Would begin a type 1C agent flecainide at a dosage of 50 mg b.i.d. in hopes of pharmaco-reversion to a sinus mechanism. 3. We will continue diltiazem, changing it to an oral long-acting preparation in the morning. 4. We will continue beta blockade. 5. Continue therapy as hypercholesterolemia and diabetes is underway. We will follow with you. Thank you for allowing us to see the patient in cardiovascular assessment. <ELECTRONICALLY SIGNED> By: Clifford Ron MD, [facility] 09/28/18 1214 1515 [id number] Ron MD, [facility] /nt
--- NOTE | 2018-09-28 14:40 | EEG ---
[address] [address] EEG STUDY REPORT Name: DORA BLAND Room: [address] IN M.R.#: [id number] Admission: 09/22/18 Attend Phys: Nicolas Wilcox Discharge: 09/27/18 Date of : 70 Report #: [id number] THIS REPORT FOR: //name// CC: SHELLI physician/PCP German Parmar DATE OF SERVICE: 09/23/2018 REASON FOR STUDY: This patient is being evaluated for syncope. TECHNIQUE: EEG was done by placing the electrode by standard 10-20 system of electrode placement. Both referential and sequential montages were used for recording. FINDINGS: Background activity in this patient's EEG is about 9 Hz and 30 microvolt. The patient went to sleep that is associated with bilaterally symmetrical sleep spindle and vertex sharp waves. Photic stimulation is unremarkable. Throughout the record, no active epileptiform activity was noticed. IMPRESSION: This patient's EEG is unremarkable. Thank you very much for this referral. <ELECTRONICALLY SIGNED> By: Edward Kidd MD 09/28/18 1440 1428 1434Pphilip Kidd MD /nt
== END 2018-09-27 18:03 | disposition home or self-care (01) | DRG 309 ==
LOC: M.ERS 19:35 → M.TBA-ER 21:56 → M.2W 21:56
PROVIDERS: Emergency Medicine; Family Medicine; Internal Medicine; ADMIT Internal Medicine
PROC: 5A2204Z Restoration of Cardiac Rhythm, Single (ICD-10-PCS; principal; 2018-09-27)
PROC: B24BZZ4 Ultrasonography of Heart with Aorta, Transesophageal (ICD-10-PCS; principal; 2018-09-27)
DX: I47.1 Supraventricular tachycardia (principal); Z68.41 Body mass index [BMI] 40.0-44.9, adult; I10 Essential (primary) hypertension; E78.00 Pure hypercholesterolemia, unspecified; I48.92 Unspecified atrial flutter; I48.1 Persistent atrial fibrillation; I25.119 Atherosclerotic heart disease of native coronary artery with unspecified angina pectoris; E66.01 Morbid (severe) obesity due to excess calories; S30.1XXA Contusion of abdominal wall, initial encounter; E11.65 Type 2 diabetes mellitus with hyperglycemia; X58.XXXA Exposure to other specified factors, initial encounter; Y93.89 Activity, other specified; Y92.89 Other specified places as the place of occurrence of the external cause; Y99.8 Other external cause status; Z95.5 Presence of coronary angioplasty implant and graft; Z76.5 Malingerer [conscious simulation]; Z79.02 Long term (current) use of antithrombotics/antiplatelets; Z79.84 Long term (current) use of oral hypoglycemic drugs; Z79.899 Other long term (current) drug therapy; Z88.0 Allergy status to penicillin; Z88.8 Allergy status to other drugs, medicaments and biological substances; Z91.041 Radiographic dye allergy status; Z82.49 Family history of ischemic heart disease and other diseases of the circulatory system

== ENCOUNTER 2018-12-27 00:29 | Inpatient (IN) | payer MEDICAID ==
[~2018-12-27] VITALS: Ht 157.5 cm; Wt 112.4 kg
[2018-12-27] VITALS (14 sets, daily range): BP systolic 106–178; BP diastolic 57–112
--- NOTE | ~2018-12-27 | CON ---
[address] [address] CONSULTATION Name: BALDODORA ANN Room: [address] ADM IN M.R.#: [id number] Admission: 12/27/18 Attend Phys: Jonathan Hassan Discharge: Date of : 70 Report #: [id number] THIS REPORT FOR: //name// CC: SHELLI physician/PCP Lorri Leggett DICTATED BY: Liliana Kennedy [facility] DATE OF SERVICE: 12/31/2018 Please note at the time of this dictation, the patient was seen and physically examined by myself. REASON FOR CONSULTATION: Recurrent nausea and vomiting. History of reflux. HISTORY OF PRESENT ILLNESS: This is a 48-year-old female who has a long-standing history of stents and chest pain. The patient states she has had stents placed back in September. She reported to the Emergency Room in atrial fib, in which she was having chest pain. She was cardioverted at that time. She was placed on Eliquis and flecainide and had been doing relatively well. She states that she started having chest pain again on the day of admission with significant nausea and vomiting. She was taken back to the [facility] and did not see any significance. She was to have a stress test yesterday; however, she had coffee that morning and she is having a stress test later today and pending on those results, it will depend on whether or not we can do an EGD on her. She continued to have some nausea and some vomiting last night because she was having recurrent chest pain as well. The patient [place], she had an EGD and colonoscopy, she was told years ago that she had H. pylori and was treated for that. She also had a colonoscopy, does not recall what it showed at this time. She does take Protonix on a regular basis, which she states does help with her reflux and has not had any for a while. ALLERGIES: CONTRAST DYE, FENTANYL, PHENERGAN AND METOCLOPRAMIDE. MEDICATIONS FROM HOME: Eliquis, Tambocor, Ranexa, Cardizem, Toprol and Protonix. PAST MEDICAL HISTORY: History of 4 cardiac stents, diabetes, hypertension, high cholesterol, and heart disease. PAST SURGICAL HISTORY: Negative. FAMILY HISTORY: Negative. SOCIAL HISTORY: The patient lives with her and currently lives in a hotel. Denies any tobacco or alcohol or [place] [address] CONSULTATION Name: DORA BLAND Room: [address] IN [facility]#: [id number] Admission: 12/27/18 Attend Phys: Jonathan Hassan Discharge: Date of : 70 Report #: [id number] REVIEW OF SYSTEMS: Twelve-point review of systems is essentially negative except what is mentioned in the HPI. PHYSICAL EXAMINATION: VITAL SIGNS: Temperature 37, pulse 78, respirations 18, blood pressure 114/52. HEART: Regular rate and rhythm. LUNGS: Diminished, but clear. ABDOMEN: Soft, positive bowel sounds in all 4 quadrants with no masses or tenderness noted. LABORATORY DATA: Hemoglobin is 12.7, white count is 7.4, platelets 164. GFR is 107. PT 10.2, INR is 1. Hemoglobin A1c is 9.5. Lipase was normal. LFTs have been normal. IMPRESSION: 1. Nausea and vomiting, recurrent. 2. Chest pain, history of stents. 3. Anticoagulant therapy, Eliquis, AFib and stents. 4. Atrial fibrillation. 5. Diabetes. PLAN: Awaiting Cardiology, okay to proceed with EGD once stress test has been performed. Thank you for allowing us to participate in this patient's care. Please do not hesitate to call with any questions in regard to this consult. By: 1208 1312Kimberly Tierney MD /nt
[~2018-12-27 00:29] MED LIST changes: +CARDIZEM CD 30300 M1 PO; +ELIQUIS5 MG PO; +FLECAINIDE ACET50 M1 PO; +RANEXA500 MG PO
[2018-12-27 00:56] LABS: HEMATOCRIT 43.5 % (37.0-47.0); MCHC 34.5 g/dL (28.0-37.0); MCV 81.1 fL (80.0-100.0); MPV 7.2 fl. (7.2-11.1); NUCLEATED RBCS 0 /100WBC; PLATELET COUNT* 216 thou/uL (150-400); RBC 5.37 mil/uL (4.20-5.00); RDW-CV 14.3 % (10.5-14.5); WBC 7.5 thou/uL (4.0-11.0)
[2018-12-27 01:00] LABS: CREATININE 0.6 mg/dL (0.6-1.3); POTASSIUM 3.6 mmol/L (3.5-5.1); PROTIME 10.2 Seconds (9.20-11.50)
[2018-12-27 01:10] LABS: ALBUMIN 3.7 g/dL (3.4-5.0); TOTAL BILIRUBIN 0.4 mg/dL (<0.1-1.0); TOTAL PROTEIN 7.3 g/dL (6.4-8.2)
[2018-12-27 02:09] LABS: ABSOLUTE EOSINOPHILS 0.2 thou/uL (0.0-0.7); ABSOLUTE MONOCYTES 0.5 thou/uL (0.0-1.2); ABSOLUTE NEUTROPHILS 1.8 thou/uL (1.6-8.1); ANISOCYTOSIS Occasional; ATYPICAL LYMPHS 2 %; CLUMPED PLTS FEW; PLATELET ESTIMATE ADEQUATE; TOXIC GRANULATION 2+
[2018-12-27] MEDS ORDERED: PROTONIX40 M2 PO (04:31)
--- NOTE | 2018-12-27 06:46 | NUR ---
ADMITTED TO ICU BED 6 TELE OVERFLOW, SEE ASSESSMENTS. DENIED CHEST PAIN, SOA, AND ANY OTHER DISCOMFORT SINCE ARRIVAL TO UNIT. PT INFORMED OF NPO STATUS BUT DEMANDED WATER. WHEN PROVIDED WITH SWAB PT GOT OUT OF BED, WALKED TO SINK AND USED HANDS TO DRINK WATER. PT INFORMED THAT THIS MAY DELAY TESTING TODAY, SHE REPLIED "OH WELL." CALL LIGHT WITHIN REACH.
[2018-12-27] MEDS ORDERED: VICTOZA0.6 MG/0.1 SUBQ (07:38)
[2018-12-27 08:46] LABS: CALCIUM 8.4 mg/dL (8.5-10.1); CREATININE 0.6 mg/dL (0.6-1.3); MAGNESIUM 1.7 mg/dL (1.8-2.4); POTASSIUM 3.8 mmol/L (3.5-5.1)
--- NOTE | 2018-12-27 12:41 | EKG ---
[place] [address] ELECTROCARDIOGRAM REPORT Name: DORA BLAND Room: [address] ADM IN M.R.#: [id number] Admission: 12/27/18 Attend Phys: Jonathan Hassan Discharge: Date of : 70 Report #: [id number] THIS REPORT FOR: //name// [facility] ED Test Date: 2018-12-27 Test Time: 00:32:04 Pat Name: DORA BLAND Department: Room: [facility] Gender: F Certified Professional Controller: [place] : 1970 Requested By: Darryl High Order Number: [id number] MD: Jae Mehta Measurements Intervals [place] Rate: 115 P: 48 MD: 51 QRS: -14 QRSD: 88 T: 136 QT: 482 QTc: 667 Interpretive Statements Sinus tachycardia Abnormal T, consider ischemia, lateral leads Prolonged QT interval Compared to ECG 09/27/2018 09:55:23 Possible ischemia now present Prolonged QT interval now present Sinus rhythm no longer present T-wave abnormality still present Electronically Signed On 12-27-2018 12:41:04 CDT by Jae Mehta [email or web address] <ELECTRONICALLY SIGNED> By: Katie Mehta MD, FAC 12/27/18 1241 Katie Mehta MD, FAC /EPI
--- NOTE | 2018-12-27 15:37 | EKG ---
[place] [address] ELECTROCARDIOGRAM REPORT Name: DORA BLAND Room: [address] ADM IN M.R.#: [id number] Admission: 12/27/18 Attend Phys: Jonathan Hassan Discharge: Date of : 70 Report #: [id number] THIS REPORT FOR: //name// [facility] Test Date: 2018-12-27 Test Time: 08:03:03 Pat Name: DORA BLAND Department: Room: [address] Gender: F Shiftman: [place] : 1970 Requested By: Nuno Aguila Order Number: [id number] Reading MD: Jae Mehta Measurements Intervals [place] Rate: 95 P: 65 MT: 135 QRS: -9 QRSD: 80 T: QT: 433 QTc: 545 Interpretive Statements Sinus rhythm Nonspecific T abnrm, anterolateral leads Prolonged QT interval Baseline wander in lead(s) V6 Compared to ECG 12/27/2018 00:32:04 Sinus tachycardia no longer present T-wave abnormality no longer present Possible ischemia no longer present Electronically Signed On 12-27-2018 15:36:47 CDT by Jae Mehta [email or web address] <ELECTRONICALLY SIGNED> By: Katie Mehta MD, FACC 12/27/18 1536 2 2 Katie Mehta MD, FACC /EPI
[2018-12-27 18:05] LABS: HEMATOCRIT 40.3 % (37.0-47.0); HEMOGLOBIN 13.9 gm/dL (12.0-15.0)
--- NOTE | 2018-12-27 18:43 | NUR ---
PT C/O CHEST PAIN, RELEIVED BY MORPHINE. NM STRESS TEST DONE TODAY. CARDIAC STRESS TEST SCHEDULED FOR 12/30/18. NS AT 125 MLS/HR. POOR APPETITE. PT REPORTED SOME BLACK STOOLS THE DAY BEFORE, PROVIDER NOTIFIED. VSS.
--- NOTE | 2018-12-27 18:53 | NUR ---
PT ARRIVED FROM ICU AROUND 1530. AGREE WITH ASSESSMENT FROM EARLIER. PT HAD PAIN IN HER CHEST THAT RADIATED TO LEFT ARM, HAS BEEN LIKE THIS SINCE ADMIT. HAD TO CALL DR FOR SHORTER TIMES IN BETWEEN PAIN MEDS AND GAVE PRN PAIN MEDICATION PER EMAR. PT RESTING IN BED AT THIS TIME. C/O DIZZINESS WHEN STANDING AND NAUSEA AND DRY HEAVES. WILL CONTINUE TO MONITOR.
[2018-12-28 02:06] LABS: GLYCOHEMOGLOBIN (HGB A1C) 9.5 % (4.8-5.6)
[2018-12-28 03:51] VITALS: BP 110/54
[2018-12-28 04:54] LABS: HEMATOCRIT 36.8 % (37.0-47.0); HEMOGLOBIN 12.7 gm/dL (12.0-15.0); MCH 28.2 pg (26.0-34.0); MCHC 34.5 g/dL (28.0-37.0); MCV 81.7 fL (80.0-100.0); MPV 7.2 fl. (7.2-11.1); RBC 4.51 mil/uL (4.20-5.00); RDW-CV 14.5 % (10.5-14.5); WBC 5.4 thou/uL (4.0-11.0)
[2018-12-28 05:12] LABS: CALCIUM 8.9 mg/dL (8.5-10.1); CREATININE 0.5 mg/dL (0.6-1.3); MAGNESIUM 1.7 mg/dL (1.8-2.4)
--- NOTE | 2018-12-28 06:58 | NUR ---
PT SLEPT MOST OF SHIFT. ASSESSMENT DOCUMENTED. MEDS GIVEN PER E-MAR. IV PATENT, FLUIDS INFUSING. PAIN MEDS GIVEN PER E-MAR WITH RELIEF. PT REPORTS HAVING BLACK TARRY STOOLS, PT EDUCATED TO GIVE A SAMPLE NEXT TIME SHE HAS A BOWEL MOVEMENT. NOTIFIED. ANXIETY MEDICATIONS ORDERED FOR PT, PT REFUSED STATING THAT SHE IS NOT ANXIOUS. WILL CONTINUE WITH PLAN OF CARE.
[2018-12-28 08:00] VITALS: BP 148/84
[2018-12-28 09:18] VITALS: BP 110/54
[2018-12-28 11:06] VITALS: BP 154/93
[2018-12-28 14:40] LABS: HEMATOCRIT 40.8 % (37.0-47.0); HEMOGLOBIN 13.8 gm/dL (12.0-15.0)
[2018-12-28 15:32] VITALS: BP 154/87
[2018-12-28 20:15] VITALS: BP 149/83
--- NOTE | 2018-12-28 20:30 | NUR ---
THIS RN HAS REVEIWED THE ASSESSMENT AND CHARTING OF RICCI MAXWELL
--- NOTE | 2018-12-28 20:33 | NUR ---
ASSUMED PT CARE AROUND 0700, PT NOTED TO BE RESTING IN BED WITH C/O CHEST PAIN. PT WAS ASSESSED AND PAIN MANAGEMENT GIVEN. PT A/OX4. PT ATE ALL MEALS THIS SHIFT, HOURLY ROUNDS COMPLETE AND DOCUMENTED THIS SHIFT. PT HAD C/O ITCHING AFTER TAKING RANEXA, NOTIFIED, MEDICATION PUT ON HOLD, BENADRYL GIVEN, PT REPORTED RELIEF. PT MAINTAINED SR ON THE TELE MONITORED. CALL LIGHT AND PERSONAL BELONGINGS IN REACH
[2018-12-29 00:50] VITALS: BP 132/63
[2018-12-29 04:00] VITALS: BP 119/68
--- NOTE | 2018-12-29 05:10 | NUR ---
PT SLEPT MOST OF SHIFT. ASSESSMENT DOCUMENTED. MEDS GIVEN PER E-MAY. NEW IV STARTED THIS SHIFT. PAIN MEDS GIVEN FOR CHEST PAIN PER E-MAY WITH RELIEF. NAUSEA MEDS GIVEN ONCE THIS SHIFT. WILL CONTINUE WITH PLAN OF CARE.
[2018-12-29 05:13] LABS: CALCIUM 9.2 mg/dL (8.5-10.1); CREATININE 0.6 mg/dL (0.6-1.3); HEMOGLOBIN 12.7 gm/dL (12.0-15.0); MAGNESIUM 1.5 mg/dL (1.8-2.4); MCHC 34.4 g/dL (28.0-37.0); MCV 81.4 fL (80.0-100.0); MPV 7.5 fl. (7.2-11.1); POTASSIUM 3.8 mmol/L (3.5-5.1); RBC 4.54 mil/uL (4.20-5.00); RDW-CV 14.4 % (10.5-14.5); WBC 7.4 thou/uL (4.0-11.0)
[2018-12-29 08:00] VITALS: BP 179/73
[2018-12-29 12:00] VITALS: BP 163/81
[2018-12-29 16:00] VITALS: BP 150/86
--- NOTE | 2018-12-29 16:27 | NUR ---
ASSUSSMED CARE OF PT APPROX 0830. REPORT RECIEVED FROM NURSE ON DAY SHIFT. PT REQUESTED FOR CARE FROM ANOTHER NURSE. REASSESSMENT COMPLETED CHARTED. MEDICATIONS GIVEN CHARTED. PT HAD C/O NAUSEA AND PAIN, MEDICATIONS GIVEN PER MAY. PT REPORTED "FEELING SHAKY INSIDE" ALSO "RINGING IN EARS", VITALS TAKEN AND PT REQUESTED PAIN MEDICATION AND ZOFRAN, MEDICATION GIVEN. PT REPORTED STILL FEELING NAUSEA. PERSONAL ITEMS WITHIN REACH AND HOURLY ROUNDING FOR NEEDS.
[2018-12-29 19:45] VITALS: BP 142/70
[2018-12-30] VITALS (7 sets, daily range): BP systolic 101–172; BP diastolic 31–91
--- NOTE | 2018-12-30 04:54 | NUR ---
PT SLEPT MOST OF SHIFT. ASSESSMENT DOCUMENTED. MEDS GIVEN PER E-MAR. IV PATENT. PAIN AND NAUSEA MEDS GIVEN PER E-MAR. PT STATES SHE "FEELS SICK" TELE MONITOR IN PLACE. WILL CONTINUE WITH PLAN OF CARE.
--- NOTE | 2018-12-30 10:23 | NUR ---
Pt is A&O. Resides at home with and son. Independent. No DME. Hx of HH several years ago. No hx of SNF. Case Management vouched for Pt's medications during last hospital stay. Goal is home at dc. Following.
--- NOTE | 2018-12-30 11:07 | NUR ---
VSS, ASSUMED CARE IN THE AM, ASSESSMENT PERFORMED AND CHARTED, FALL PRECAUTIONS IN PLACE AND CALL LIGHT IN REACH, PT IS A&O4, UP AD ANGELIQUE, TRACING SR ON THE MONITOR, SHE STATES CHEST PAIN 11/19, PT FREQUENTLY REQUEST IV PAIN MEDS, PT GOAL WAS TO COMPLETE 2ND PART STRESS TEST BUT HAD COFFEE THIS AM, SO WAS PUT OFF FOR TOMORROW OR OUT PT, WILL FOLLOW WITH PLAN OF CARE,
[2018-12-31] VITALS: BP 120/79
[2018-12-31 04:00] VITALS: BP 127/79
--- NOTE | 2018-12-31 07:52 | NUR ---
PT CARE ASSUMED AT 1930. SAT MAINTAINED IN RA. C/O NAUSEA AND PAIN, MEDICATION GIVEN PER EMAR. CALL LIGHT WITHIN REACH AND BED IN LOW POSITION. ALERT AND ORIENTED X4. HOURLY ROUNDING DONE FOR PT SAFETY.
[2018-12-31 08:00] VITALS: BP 114/52
--- NOTE | 2018-12-31 08:34 | EKG ---
[place] [address] ELECTROCARDIOGRAM REPORT Name: DORA BLAND Room: [address] ADM IN M.R.#: [id number] Admission: 12/27/18 Attend Phys: Jonathan Hassan Discharge: Date of : 70 Report #: [id number] THIS REPORT FOR: //name// [facility] Test Date: 2018-12-28 Test Time: 10:47:55 Pat Name: DORA BLAND Department: Room: [address] Gender: F Glueline Worker: : 1970 Requested By: Lorri Leggett Order Number: [id number] Dandre MD: Siva Lance Measurements Intervals [place] Rate: 82 P: 72 AR: 144 QRS: -5 QRSD: 114 T: 10 QT: 388 QTc: 453 Interpretive Statements Sinus rhythm Borderline T wave abnormalities Compared to ECG 12/27/2018 08:03:03 T-wave abnormality now present Prolonged QT interval no longer present Electronically Signed On 12-31-2018 8:34:35 CDT by Siva Lance [email or web address] <ELECTRONICALLY SIGNED> By: Siva Lance MD, FACC 12/31/18 0834 1047 1047 Siva Lance MD, [facility] /EPI
[2018-12-31 11:51] VITALS: BP 129/73
--- NOTE | 2018-12-31 13:11 | NUR ---
CONTINUE TO FOLLOW, CONFIRMED WITH PT THAT WE DO HAVE HER MEDICAID INFO ON FILE. SHE ASKED IF IT WOULD BE RETROACTIVE TO OLD ACCOUNTS, LEFT VMPRATIK FOR PRECERT TO CHECK
[2018-12-31 15:47] VITALS: BP 162/104
--- NOTE | 2018-12-31 16:19 | CARDNUC ---
[place] [address] CARDIAC NUCLEAR IMAGING REPORT Name: BALDODORA PADMINI Room: 222- ADM IN [facility]#: [id number] Admission: 12/27/18 Attend Phys: Lorri Leggett Discharge: Date of : 70 Date of Service: 12/31/18 1618 Report #: [id number] THIS REPORT FOR: //name// APPROVED REPORT Imaging Protocol: Rest Tc-99m/Stress Tc-99m 2 days Study performed: 12/31/2018 13:40:11 Indication: Chest pain, Syncope Patient Location: In-Patient Room #: 222 Stress Tech: Karolyn Lin Stress Nurse: Angie London RN Ht: 5 ft 2 in Wt: 242 lbs BSA: 2.07 m2 BMI: 44.25 Medical History Medical History: Angina, CAD s/p stent, PAT, , HTN, Hyperlipidemia, Diabetes, Obesity , Weakness, Fatigue, Obesity. Medications: Apixaban, Atorvastatin, Flecainide, Ranalozine, Metoprolol, Clopidogrel, Diltiazem, Insulin, Metformin. Allergies: Promethazine, Metoclopramide, Contrast Dye, Fentanyl Cardiac Risk Factors: DM, FHX of CAD, HTN, Hyperlipidemia, PAT, Obesity. Previous Cardiac Procedures: PCI Pretest Chest Pain Characteristics: No chest pain Exercise History: Indeterminate Physical Disabilities: Nausea, weakness,fatigue. Meds Held (24 hrs): Metoprolol, Ranalozine. Resting Data Rest SPECT myocardial perfusion imaging was performed in supine position 60 minutes following the intravenous injection of 31.5 mCi of Tc-99m Sestamibi. Time of rest injection: 1400 Date: 12/27/2018 The images were gated to evaluate regional wall motion and calculate left ventricular ejection fraction. Administration Route: IV Administration Site: Left AC Pharmacologic Stress Pharmacologic stress test was performed by injecting Regadenoson 0.4 mg IV push over 10-15 seconds immediately [place] [address] CARDIAC NUCLEAR IMAGING REPORT Name: DORA BLAND Room: [address] IN ..#: [id number] Admission: 12/27/18 Attend Phys: Lorri Leggett Discharge: Date of : 70 Date of Service: 12/31/18 1618 Report #: [id number] injection of 31.5 mCi of Tc-99m Sestamibi. Time of stress injection: 13:45 Date: 12/31/2018 Administration Route: IV Administration Site: Left AC Heart Rate at time of stress injection: 93 bpm. Gated Stress SPECT was performed 45 minutes after stress injection. The images were gated to evaluate regional wall motion and calculate left ventricular ejection fraction. Stress Test Details Stress Test: Pharmacologic stress testing performed using 0.4 mg of regadenoson per 5 mL given IV over 10 seconds. Reason for pharmacologic stress test: Fatigue, nausea, weakness. 60 mg caffeine given for other. HR Max Heart Rate (APMHR): 172 bpm Resting HR: 72 bpm Target HR (85% APMHR): 146 bpm Max HR Achieved: 93 bpm % of APMHR: 54 Recovery HR: 81 bpm BP Resting BP: 137/81 mmHg Max BP: 111/64 mmHg Recovery BP: 121/71 mmHg ECG Resting ECG: Sinus Rhythm Stress ECG: Sinus Rhythm ST Change: None Arrhythmia: None Recovery ECG: Sinus Rhythm Recovery ST Change: None Recovery Arrhythmia: None Clinical Reason for Termination: Completed protocol Stress Symptoms: Fatigue, Weakness, Nausea, Dyspnea Exercise duration: 00 min 00 sec Exercise capacity: 1.00 METs The patient tolerated Lexiscan infusion without significant cardiac symptoms. Nurse Comments A 48 year old female inpatient presented for sitting Lexiscan for c/o CP and syncope. Patient tolerated test well. Recovery required 60 [place] [address] CARDIAC NUCLEAR IMAGING REPORT Name: DORA BLAND Room: [address] IN M.R.#: [id number] Admission: 12/27/18 Attend Phys: Lorri Leggett Discharge: Date of : 70 Date of Service: 12/31/18 1618 Report #: [id number] IV caffeine as Fiona reversal as patient was NPO for EGD later in day, effective. Patient was escorted by staff via wheelchair to Nuclear Medicine for images. Patient was stable with no further complaints at that time. Stress ECG Conclusion The baseline 12-lead EKG show sinus rhythm without significant ST or T wave abnormality. EKGs obtained during and post Lexiscan infusion show sinus rhythm with no significant ST or T wave. Baseline. There were no stress-induced arrhythmias. Study Quality Study: Good Artifact: Mild Diaphragmatic artifact Study Data At rest, the left ventricular ejection fraction was 78%.. Post stress, the left ventricular ejection was 72%.. TID = 1.13. Perfusion There is mild photopenia in the inferior wall noted prominently on resting images. Post stress images show near total resolution of this defect suggesting diaphragmatic attenuation artifact. No other significant fixed or reversible defects were identified. Wall Motion Normal left ventricular wall motion. Nuclear Conclusion ECG Findings: negative for ischemia Clinical Findings: negative for ischemia Nuclear Findings: negative for ischemia Exercise Capacity: not assessed Left Ventricular Function: normal Risk Study: low Myocardial perfusion images show no defect to suggest infarct or ischemia. Left particular systolic function appears normal on gated studies. This is a low risk study. <Conclusion> The baseline 12-lead EKG show sinus rhythm without significant ST or T wave abnormality. EKGs obtained during [place] [address] CARDIAC NUCLEAR IMAGING REPORT Name: DORA BLAND Room: [address] IN M.R.#: [id number] Admission: 12/27/18 Attend Phys: Lorri Leggett Discharge: Date of : 70 Date of Service: 12/31/18 1618 Report #: [id number] show sinus rhythm with no significant ST or T wave. Baseline. There were no stress-induced arrhythmias. <ELECTRONICALLY SIGNED> By: Siva Lance MD, FACC 12/31/18 1618 17 17 Siva Lance MD, FACC /INF
--- NOTE | 2018-12-31 19:39 | NUR ---
ASSUSMED CARE OF PT APPROX 0730. REASSESSMENT COMPLETED CHARTED. MEDICATIONS GIVEN CHARTED. PT EDUCATION ABOUT MEDICATIONS BEING GIVEN. PT OFF UNIT FOR TESTING THIS AFTERNOON. PT HAD C/O NAUSEA MEDICATIONS GIVEN PER MAY. PT HAD C/O PAIN MEDICATIONS GIVEN PER MAY. PTS IV SITE CHANGED DUE TO NOT FLUSHING. INFUSION NURSE PLACED NEW IV.TELE MONITORED. HOURLY ROUNDED FOR PT SAFTEY.
[2018-12-31 19:40] VITALS: BP 132/61
[2019-01-01] VITALS: BP 116/96
[2019-01-01 04:00] VITALS: BP 103/56
--- NOTE | 2019-01-01 06:44 | NUR ---
VSS. PROGRESSING TOWARDS GOALS. SEE MAR. SEE CHARTING. HOURLY ROUNDING FOR SAFETY.
[2019-01-01 07:45] VITALS: BP 134/76
[2019-01-01] MEDS ORDERED: OXYCODONE HCL 55 MG PO (12:20)
[2019-01-01] MEDS ORDERED: PROTONIX40 M1 PO (12:20)
[2019-01-01] MEDS ORDERED: OXYBUTYNIN 5 MG5 M2 PO (12:45)
[2019-01-01] MEDS ORDERED: PROTONIX40 M4 PO (12:46)
[2019-01-01] MEDS ORDERED: ONDANSETRON ODT4 MG PO (13:05)
[2019-01-01 13:07] VITALS: BP 110/54
--- NOTE | 2019-01-01 13:45 | NUR ---
PT TO DC TO HOME AT THIS TIME. PT VERBALIZED UNDERSTANDING TO DC INSTRUCTIONS AND MEDICAITONS AT THIS TIME. PT UNDERSTANDS SHE NEEDS TO FOLLOW UP WITH PCP, GI, AND CARDIOLOGY APPOINTMENT IS ALREADY MADE. PT REFUSED AFTERNOON INSULIN AND STATED SHE WOULD TAKE HER MEDS WHEN SHE GETS HOME. IV REMOVED INTACT AT THIS TIME. 3 RX PROVIDED AT THIS TIME, PT REFUSED THE PROMETHEZINE RX SHE STATES SHE IS ALLERGIC AND IT WAS PLACED IN SHRED BIN. HOURLY ROUNDING MAINTAINED THIS SHIFT. PT TAKEN OUT WITH HOSPITAL STAFF VIA WC AT THIS TIME.
--- NOTE | 2019-01-01 14:03 | NUR ---
PT EDUCATED ON DC TO GO TO PHARMACY AND DITCH RIDER HER MEDICATIONS THAT WERE BEING STORED...SHE GOT TO PHARMACY AND WAS VERY MAD AND ACCUSED THIS RN OF LYING STATING THAT THIS RN SAID THAT SHE COULD GET HER DC RX FILLED AT OUR PHARMACY. THIS RN ASKED PHARMACY TO APPOLOGIZE FOR THE CONFUSION. WILL SIGN OFF CARE AT THIS TIME
== END 2019-01-01 13:50 | disposition home or self-care (01) | DRG 377 ==
LOC: M.ERS 00:29 → M.ICU 01:15 → M.2W 01:15 → M.TBA-ER 01:15 → M.ICU 01:50 → M.2W 17:11
PROVIDERS: Emergency Medicine; Internal Medicine; ADMIT Internal Medicine
DX: K27.4 Chronic or unspecified peptic ulcer, site unspecified, with hemorrhage (principal); E11.00 Type 2 diabetes mellitus with hyperosmolarity without nonketotic hyperglycemic-hyperosmolar coma (NKHHC); Z68.42 Body mass index [BMI] 45.0-49.9, adult; I10 Essential (primary) hypertension; E78.00 Pure hypercholesterolemia, unspecified; I48.91 Unspecified atrial fibrillation; E66.01 Morbid (severe) obesity due to excess calories; K21.9 Gastro-esophageal reflux disease without esophagitis; I25.10 Atherosclerotic heart disease of native coronary artery without angina pectoris; E11.65 Type 2 diabetes mellitus with hyperglycemia; E86.9 Volume depletion, unspecified; E78.5 Hyperlipidemia, unspecified; I48.0 Paroxysmal atrial fibrillation; T46.995A Adverse effect of other agents primarily affecting the cardiovascular system, initial encounter; Z95.5 Presence of coronary angioplasty implant and graft; Z88.8 Allergy status to other drugs, medicaments and biological substances; Z91.041 Radiographic dye allergy status; Z79.01 Long term (current) use of anticoagulants; Z82.49 Family history of ischemic heart disease and other diseases of the circulatory system; Y92.89 Other specified places as the place of occurrence of the external cause

== ENCOUNTER 2019-01-28 01:05 | Inpatient (IN) | payer MEDICAID ==
[~2019-01-28] VITALS: Ht 157.5 cm; Wt 106.0 kg
[2019-01-28] VITALS (7 sets, daily range): BP systolic 131–220; BP diastolic 79–104
[~2019-01-28 01:05] MED LIST changes: +ONDANSETRON ODT4 MG PO; +OXYBUTYNIN 5 MG5 M2 PO; +OXYCODONE HCL 55 MG PO; +PROTONIX40 M1 PO; +PROTONIX40 M2 PO; +PROTONIX40 M4 PO; +VICTOZA0.6 MG/0.1 SUBQ
[2019-01-28 01:53] LABS: ABSOLUTE LYMPHOCYTES 3.8 thou/uL (0.8-5.3); NUCLEATED RBCS 0 /100WBC; RBC 5.44 mil/uL (4.20-5.00); RDW-CV 14.5 % (10.5-14.5)
[2019-01-28 02:07] LABS: ABSOLUTE EOSINOPHILS 0.1 thou/uL (0.0-0.7); ABSOLUTE MONOCYTES 0.5 thou/uL (0.0-1.2); ABSOLUTE NEUTROPHILS 2.3 thou/uL (1.6-8.1); BASOPHILS 0.4 %; EOSINOPHILS 1.5 %; HEMATOCRIT 43.8 % (37.0-47.0); HEMOGLOBIN 14.9 gm/dL (12.0-15.0); LYMPHOCYTES 56.3 %; MCH 27.4 pg (26.0-34.0); MCV 80.6 fL (80.0-100.0); MONOCYTES 8.2 %; MPV 7.2 fl. (7.2-11.1); PLATELET COUNT* 170 thou/uL (150-400); POLYS 33.6 %; WBC 6.7 thou/uL (4.0-11.0)
[2019-01-28 02:11] LABS: CALCIUM 8.5 mg/dL (8.5-10.1); CREATININE 0.6 mg/dL (0.6-1.3); POTASSIUM 3.4 mmol/L (3.5-5.1)
[2019-01-28 02:14] LABS: PROTIME 10.7 Seconds (9.20-11.50)
[2019-01-28 02:22] LABS: ALBUMIN 3.6 g/dL (3.4-5.0); TOTAL BILIRUBIN 0.4 mg/dL (<0.1-1.0)
--- NOTE | 2019-01-28 09:34 | EKG ---
[place] [address] ELECTROCARDIOGRAM REPORT Name: DORA BLAND Room: [address] ADM IN M.R.#: [id number] Admission: 01/28/19 Attend Phys: Nuno Aguila MD Discharge: Date of : 70 Report #: [id number] THIS REPORT FOR: //name// [facility] ED Test Date: 2019-01-28 Test Time: 01:08:51 Pat Name: DORA BLAND Department: Room: [facility] Gender: F Animal Ecologist: : 1970 Requested By: Hannah Phan Order Number: [id number] MD: Siva Lance Measurements Intervals [place] Rate: 115 P: 58 SD: 158 QRS: -8 QRSD: 82 T: 103 QT: 393 QTc: 544 Interpretive Statements Sinus tachycardia Probable left atrial enlargement Borderline repolarization abnormality Prolonged QT interval Compared to ECG 12/28/2018 10:47:55 Prolonged QT interval now present Sinus rhythm no longer present T-wave abnormality no longer present Electronically Signed On 01-28-2019 9:33:57 PETROL TANKER DRIVER by Siva Lance [email or web address] <ELECTRONICALLY SIGNED> By: Siva Lance MD, FACC 01/28/19 0933 0108 Siva Lance MD, FACC /EPI
--- NOTE | 2019-01-28 16:49 | 2DMMODE ---
[place] [address] 2 D/M-MODE ECHOCARDIOGRAM Name: BLANDDORA PADMINI Room: [address] IN [facility]#: [id number] Admission: 01/28/19 Attend Phys: Nuno Aguila, Discharge: Date of : 70 Date of Service: 01/28/19 1649 Report #: [id number] THIS REPORT FOR: //name// APPROVED REPORT Study performed: 01/28/2019 14:57:10 EXAM: Comprehensive 2D, Doppler, and color-flow Echocardiogram Patient Location: In-Patient Room #: 218 BSA: 2.07 HR: 85 bpm BP: 172/94 mmHg Other Information Study Quality: Fair Indications Hypertensive Urgency 2D Dimensions IVSd: 11.12 (7-11mm) LVOT Diam: 20.11 (18-24mm) LVDd: 50.87 mm PWd: 11.12 (7-11mm) Ascending Ao: 31.32 (22-36mm) LVDs: 26.56 (25-40mm) Aortic Root: 26.76 mm Volumes Left Atrial Volume (Systole) LA ESV Index: 24.90 mL/m2 Aortic Valve AoV Peak Eduard.: 2.80 m/s AO Peak Gr.: 31.34 mmHg LVOT Max P.18 mmHg AO Mean Gr.: 18.41 mmHg LVOT Mean P.55 mmHg LVOT Max V: 0.89 m/s AO V2 VTI: 62.21 cm LVOT Mean V: 0.57 m/s ARLEN (VTI): 1.01 cm2 LVOT V1 VTI: 19.80 cm Mitral Valve E/A Ratio: 1.07 MV Decel. Time: 211.34 ms MV E Max Eduard.: 0.83 m/s MV PHT: 61.29 [place] [address] 2 D/M-MODE ECHOCARDIOGRAM Name: DORA BLAND Room: [address] IN .R.#: [id number] Admission: 01/28/19 Attend Phys: Nuno Aguila, Discharge: Date of : 70 Date of Service: 01/28/19 1649 Report #: [id number] MVA (PHT): 3.59 cm2 TDI E/Lateral E': 8.30 E/Medial E': 9.22 Medial E' Eduard.: 0.09 m/s Lateral E' Eduard.: 0.10 m/s Pulmonary Valve PV Peak Eduard.: 0.86 m/s PV Peak Gr.: 2.95 mmHg Tricuspid Valve RAP Estimate: 5.00 mmHg TR Peak Gr.: 23.07 mmHg RVSP: 28.07 mmHg PA Pressure: 28.07 mmHg Left Ventricle The left ventricle is normal size. There is normal LV segmental wall motion. There is normal left ventricular wall thickness. Left ventricular systolic function is normal. LVEF is 60-65%. The left ventricular diastolic function is normal. Right Ventricle The right ventricle is normal size. The right ventricular systolic function is normal. Atria The left atrium size is normal. The right atrium size is normal. Aortic Valve Moderate aortic valve sclerosis. No aortic regurgitation is present. Moderate aortic stenosis. Mitral Valve The mitral valve is normal in structure. Mild mitral regurgitation. No evidence of mitral valve stenosis. Tricuspid Valve The tricuspid valve is normal in structure. Mild tricuspid regurgitation. No pulmonary hypertension. Pulmonic Valve The pulmonary valve is normal in structure. There is no pulmonic valvular regurgitation[place] [address] 2 D/M-MODE ECHOCARDIOGRAM Name: DORA BLAND Room: [address] IN [facility]#: [id number] Admission: 01/28/19 Attend Phys: Nuno Aguila, Discharge: Date of : 70 Date of Service: 01/28/19 1649 Report #: [id number] The aortic root is normal in size. IVC is normal in size and collapses >50% with inspiration. Pericardium There is no pericardial effusion. <Conclusion> The left ventricle is normal size. There is normal left ventricular wall thickness. Left ventricular systolic function is normal. LVEF is 60-65%. The left ventricular diastolic function is normal. Moderate aortic valve sclerosis. Moderate aortic stenosis. Mild mitral regurgitation. Mild tricuspid regurgitation. No pulmonary hypertension. <ELECTRONICALLY SIGNED> By: Siva Lance MD, FACC 01/28/191648 48 48 Siva Lance MD, FACC /INF
[2019-01-29] VITALS: BP 101/53
[2019-01-29 04:00] VITALS: BP 130/70
[2019-01-29 04:28] LABS: HEMATOCRIT 40.4 % (37.0-47.0); HEMOGLOBIN 13.5 gm/dL (12.0-15.0); MCH 27.4 pg (26.0-34.0); MCHC 33.5 g/dL (28.0-37.0); MCV 81.7 fL (80.0-100.0); MPV 7.4 fl. (7.2-11.1); RBC 4.94 mil/uL (4.20-5.00); RDW-CV 14.1 % (10.5-14.5); WBC 6.4 thou/uL (4.0-11.0)
[2019-01-29 05:03] LABS: ALBUMIN 3.4 g/dL (3.4-5.0); CALCIUM 8.8 mg/dL (8.5-10.1); CREATININE 0.5 mg/dL (0.6-1.3); MAGNESIUM 1.5 mg/dL (1.8-2.4); POTASSIUM 4.2 mmol/L (3.5-5.1); TOTAL BILIRUBIN 0.5 mg/dL (<0.1-1.0)
[2019-01-29 07:15] VITALS: BP 150/80
[2019-01-29 11:27] VITALS: BP 148/55
[2019-01-29 20:00] VITALS: BP 149/72
[2019-01-30] VITALS (8 sets, daily range): BP systolic 124–170; BP diastolic 58–102
[2019-01-31] VITALS: BP 146/86
[2019-01-31 03:35] LABS: HEMATOCRIT 38.3 % (37.0-47.0); HEMOGLOBIN 12.7 gm/dL (12.0-15.0); MCH 27.6 pg (26.0-34.0); MCHC 33.2 g/dL (28.0-37.0); MPV 7.6 fl. (7.2-11.1); RBC 4.62 mil/uL (4.20-5.00); RDW-CV 14.7 % (10.5-14.5); WBC 12.3 thou/uL (4.0-11.0)
[2019-01-31 03:55] LABS: ALBUMIN 3.3 g/dL (3.4-5.0); ALKALINE PHOSPHATASE 86 U/L (46-116); ANION GAP 6 mmol/L (7-16); BUN 21 mg/dL (7-18); CALCIUM 9.5 mg/dL (8.5-10.1); CHLORIDE 103 mmol/L (98-107); CO2 29 mmol/L (21-32); CREATININE 0.8 mg/dL (0.6-1.3); GLUCOSE 318 mg/dL (70-99); MAGNESIUM 1.8 mg/dL (1.8-2.4); POTASSIUM 4.4 mmol/L (3.5-5.1); SGOT 49 U/L (15-37); SGPT 47 U/L (30-65); SODIUM 138 mmol/L (136-145); TOTAL BILIRUBIN 0.5 mg/dL (<0.1-1.0); TOTAL PROTEIN 6.4 g/dL (6.4-8.2); TROPONIN-I LEVEL <0.06 ng/mL (<0.06)
[2019-01-31 04:00] VITALS: BP 105/47
[2019-01-31 08:00] VITALS: BP 144/77
[2019-01-31 08:05] VITALS: BP 144/77
[2019-01-31] MEDS ORDERED: HYDROCODON-ACE1 EAC7 PO (09:51)
[2019-01-31] MEDS ORDERED: CARAFATE 1 GM TA1 G1 PO (09:51)
[2019-01-31] MEDS ORDERED: GLUCOTROL5 MG PO (09:51)
[2019-01-31] MEDS ORDERED: TEST STRIPS1 EACH SUBQ (09:57)
[2019-01-31 13:44] VITALS: BP 144/77
--- NOTE | 2019-01-31 13:53 | EKG ---
[place] [address] ELECTROCARDIOGRAM REPORT Name: DORA BLAND Room: [address] ADM IN M.R.#: [id number] Admission: 01/28/19 Attend Phys: Nuno Aguila MD Discharge: Date of : 70 Report #: [id number] THIS REPORT FOR: //name// [facility] Test Date: 2019-01-30 Test Time: 12:34:30 Pat Name: DORA BLAND Department: Room: [address] Gender: F Patch Washer: : 1970 Requested By: Nuno Aguila Order Number: [id number] Reading MD: Clifford Ron Measurements Intervals [place] Rate: 68 P: 56 TN: 141 QRS: -14 QRSD: 101 T: -5 QT: 490 QTc: 522 Interpretive Statements Sinus rhythm Ventricular premature complex Borderline T abnormalities, diffuse leads Prolonged QT interval Baseline wander in lead(s) V6 Compared to ECG 01/28/2019 01:08:51 Ventricular premature complex(es) now present T-wave abnormality now present Sinus tachycardia no longer present Electronically Signed On 01-31-2019 13:53:37 TRAINING OFFICER by Clifford Ron [email or web address] <ELECTRONICALLY SIGNED> By: Clifford Ron MD, FACC 01/31/19 1353 1234 1234 Clifford Ron MD, FACC /EPI
[2019-01-31] MEDS ORDERED: LORCET 5-325 M1 EACH PO (14:04)
== END 2019-01-31 14:46 | disposition home or self-care (01) | DRG 378 ==
LOC: M.ERS 01:05 → M.2W 03:14 → M.TBA-ER 03:14 → M.2W 04:21
PROVIDERS: Internal Medicine; Personal Emergency Response Attendant; ADMIT Internal Medicine
PROC: 0DB68ZX Excision of Stomach, Via Natural or Artificial Opening Endoscopic, Diagnostic (ICD-10-PCS; principal; 2019-01-31)
DX: K92.0 Hematemesis (principal); I16.1 Hypertensive emergency; I10 Essential (primary) hypertension; E78.00 Pure hypercholesterolemia, unspecified; K21.9 Gastro-esophageal reflux disease without esophagitis; E66.01 Morbid (severe) obesity due to excess calories; I25.119 Atherosclerotic heart disease of native coronary artery with unspecified angina pectoris; E11.65 Type 2 diabetes mellitus with hyperglycemia; I48.0 Paroxysmal atrial fibrillation; E78.5 Hyperlipidemia, unspecified; R16.2 Hepatomegaly with splenomegaly, not elsewhere classified; Z68.42 Body mass index [BMI] 45.0-49.9, adult; Z95.5 Presence of coronary angioplasty implant and graft; Z88.8 Allergy status to other drugs, medicaments and biological substances; Z91.041 Radiographic dye allergy status; Z82.49 Family history of ischemic heart disease and other diseases of the circulatory system

== ENCOUNTER 2019-02-28 08:27 | Emergency (ER) | payer MEDICAID ==
[~2019-02-28] VITALS: Ht 157.5 cm; Wt 117.9 kg
[~2019-02-28 08:27] MED LIST changes: +CARAFATE 1 GM TA1 G1 PO; +GLUCOTROL5 MG PO; +HYDROCODON-ACE1 EAC7 PO; +LORCET 5-325 M1 EACH PO; +TEST STRIPS1 EACH SUBQ
[2019-02-28 09:13] LABS: URINE BILIRUBIN NEGATIVE (Negative); URINE BLOOD TRACE (Negative); URINE CLARITY CLEAR; URINE COLOR YELLOW; URINE GLUCOSE-RANDOM 3+ (Negative); URINE KETONES 1+ (Negative); URINE LEUKOCYTES-REFLEX NEGATIVE (Negative); URINE NITRITE-REFLEX NEGATIVE (Negative); URINE PROTEIN TRACE (Negative); URINE SPECIFIC GRAVITY 1.025 (1.005-1.030); URINE UROBILINOGEN 0.2 E.U./dl (0.2-1.0)
[2019-02-28 09:13] LABS: ABSOLUTE BASOPHILS 0.1 thou/uL (0.0-0.2); ABSOLUTE EOSINOPHILS 0.1 thou/uL (0.0-0.7); ABSOLUTE LYMPHOCYTES 2.4 thou/uL (0.8-5.3); ABSOLUTE MONOCYTES 0.6 thou/uL (0.0-1.2); ABSOLUTE NEUTROPHILS 2.2 thou/uL (1.6-8.1); BASOPHILS 1.4 %; EOSINOPHILS 2.4 %; HEMATOCRIT 40.4 % (37.0-47.0); HEMOGLOBIN 14.1 gm/dL (12.0-15.0); LYMPHOCYTES 44.7 %; MCH 27.9 pg (26.0-34.0); MCHC 34.8 g/dL (28.0-37.0); MCV 80.1 fL (80.0-100.0); MONOCYTES 10.3 %; MPV 7.4 fl. (7.2-11.1); NUCLEATED RBCS 0 /100WBC; PLATELET COUNT* 143 thou/uL (150-400); POLYS 41.2 %; RBC 5.04 mil/uL (4.20-5.00); RDW-CV 14.2 % (10.5-14.5); WBC 5.4 thou/uL (4.0-11.0)
[2019-02-28 09:36] LABS: CALCIUM 9.7 mg/dL (8.5-10.1); CREATININE 0.6 mg/dL (0.6-1.3); POTASSIUM 3.8 mmol/L (3.5-5.1)
[2019-02-28 09:40] LABS: ALBUMIN 3.5 g/dL (3.4-5.0); TOTAL BILIRUBIN 0.6 mg/dL (<0.1-1.0); TOTAL PROTEIN 6.9 g/dL (6.4-8.2)
[2019-02-28] MEDS ORDERED: HYDROCODON-ACE1 EAC7 PO (09:48)
[2019-02-28] MEDS ORDERED: MONISTAT 745 GM TOP (09:48)
[2019-02-28 10:05] VITALS: BP 151/116
== END 2019-02-28 10:06 | disposition home or self-care (01) ==
LOC: M.ERS 08:27
PROVIDERS: Personal Emergency Response Attendant
DX: N76.0 Acute vaginitis (principal); R10.32 Left lower quadrant pain; E11.9 Type 2 diabetes mellitus without complications; I10 Essential (primary) hypertension; E78.00 Pure hypercholesterolemia, unspecified; K21.9 Gastro-esophageal reflux disease without esophagitis; E66.01 Morbid (severe) obesity due to excess calories; Z68.42 Body mass index [BMI] 45.0-49.9, adult; Z91.041 Radiographic dye allergy status; Z88.8 Allergy status to other drugs, medicaments and biological substances; Z95.5 Presence of coronary angioplasty implant and graft

== ENCOUNTER 2021-04-19 21:34 | Observation (INO) | payer MEDICAID ==
[~2021-04-19] VITALS: Ht 157.5 cm; Wt 103.4 kg
[~2021-04-19 21:34] MED LIST changes: +MONISTAT 745 GM TOP
[2021-04-19 21:50] VITALS: BP 159/94
[2021-04-19 22:28] LABS: ABSOLUTE BASOPHILS 0.1 thou/uL (0.0-0.2); ABSOLUTE EOSINOPHILS 0.3 thou/uL (0.0-0.7); ABSOLUTE LYMPHOCYTES 5.1 thou/uL (0.8-5.3); ABSOLUTE MONOCYTES 0.7 thou/uL (0.0-1.2); ABSOLUTE NEUTROPHILS 3.9 thou/uL (1.6-8.1); EOSINOPHILS 2.6 %; HEMATOCRIT 41.9 % (37.0-47.0); HEMOGLOBIN 14.2 gm/dL (12.0-15.0); MCH 27.4 pg (26.0-34.0); MCV 80.7 fL (80.0-100.0); MONOCYTES 6.5 %; NUCLEATED RBCS 0 /100WBC; PLATELET COUNT* 233 thou/uL (150-400); POLYS 38.9 %; RBC 5.19 mil/uL (4.20-5.00); RDW-CV 13.8 % (10.5-14.5); WBC 10.1 thou/uL (4.0-11.0)
[2021-04-19 22:29] LABS: CALCIUM 8.2 mg/dL (8.5-10.1); CREATININE 0.6 mg/dL (0.6-1.3); POTASSIUM 3.6 mmol/L (3.5-5.1)
[2021-04-19 22:39] LABS: ALBUMIN 3.6 g/dL (3.4-5.0); MAGNESIUM 1.9 mg/dL (1.8-2.4); TOTAL BILIRUBIN 0.3 mg/dL (<0.1-1.0); TOTAL PROTEIN 7.3 g/dL (6.4-8.2)
--- NOTE | 2021-04-19 22:58 | NUR ---
HEALTH IT SPECIALIST MET WITH PT TO DISCUSS CARE OF HER DEVELOPMENTALLY DELAYED SON WHILE IN THE HOSPITAL. THE PT IS BEING ADMITTED FOR CP; THE PT REPORTS "I HAVE NO ONE TO HELP WITH MY SON". THE PT REPORTS HER SON AGE IS THE EQUIVALENT OF A 12 YEAR OLD; SHE REPORTED THAT RECENTLY HER ; SHE CLAIMS TO HAVE NO SIBLINGS OR EXTENDED FAMILY THAT CAN ASSIST WITH HIS CARE; IT WAS EXPLAINED THAT SHE IS THE PATIENT AND WE ARE RESPONSIBLE FOR TAKING CARE OF HER AND NOT HER SON; THE PATIENT WAS TEARFUL IN A DISHEVELED MESS; THE NURSE ASKED HER PLAN IF SOMETHING HAPPENED TO HER; THE PT BEGAN CRYING; FURTHER QUESTIONING WITH RESULTS THE PT MOVED FROM [place] ON Apr TO HAVE MORE RESOURCES AVAILABLE FOR HER SON; SHE HAS CONTACTED SOCIAL [employer]UR[employer] [facility]UDY AND SHE REACHED OUT TO [facility]; THE PATIENT HAD THE NUMBER OF [facility] [phone]; THE PT GAVE ME VERBAL PERMISSION TO CONTACT RADHA AND DISCUSS THE PTS CURRENT SITUATION; THE PT WAS PRESENT DURING CALL AND WAS DISTRESSED AND APOLOGETIC TO THE MISSONARY; RADHA REPORTED THAT SHE WILL REACH OUT TO OTHER [facility] TO ASSIST THE PT REGARDING HER SON'S CARE IN THE MORNING; SHE IS GOING TO CONTACT THE HOSPITAL IN THE AM
--- NOTE | 2021-04-19 23:21 | NUR ---
THE PT ASKED "IF MY SON LEAVES WILL YOU STOP HIM" IT WAS EXPLAINED THAT WE CAN NOT STOP HIM. WE CAN ASK HIM TO STAY AND REDIRECT HIM TO HER ROOM, BUT LEGALLY WE CANNOT DETAIN HIM
[2021-04-20 03:03] LABS: URINE BILIRUBIN NEGATIVE (Negative); URINE BLOOD NEGATIVE (Negative); URINE CLARITY CLEAR; URINE COLOR YELLOW; URINE GLUCOSE-RANDOM 3+ (Negative); URINE KETONES NEGATIVE (Negative); URINE LEUKOCYTES-REFLEX NEGATIVE (Negative); URINE NITRITE-REFLEX NEGATIVE (Negative); URINE PROTEIN TRACE (Negative); URINE UROBILINOGEN 0.2 E.U./dl (0.2-1.0)
[2021-04-20 03:13] LABS: AMP/METHAMP Negative (Negative); BARBITURATES Negative (Negative); BENZODIAZEPINES Negative (Negative); COCAINE Negative (Negative); METHADONE Negative (Negative); OPIATES POSITIVE (Negative); PCP Negative (Negative); THC Negative (Negative)
[2021-04-20 05:44] VITALS: BP 144/85
--- NOTE | 2021-04-20 07:10 | NUR ---
ASSUMED CARE OF THIS PT AT THIS TIME.
--- NOTE | 2021-04-20 08:00 | NUR ---
LEONEL DAVIDSON, A MEMBER OF THE PATIENT'S BAPTISM CALLED TO INFORM THIS RN THAT SHE HAS NOT MET THE PATIENT, NOR HER SON. RADHA STATES THAT SHE FEELS IT WOULD BE INAPPROPRIATE TO TAKE THE PATIENT'S SON AND PLACE HIM IN A HOME WHERE THE FAMILY DOES NOT KNOW ANYTHING ABOUT THE SON'S MEDICAL HISTORY, BEHAVIOR, DISABILITY, ETC. THE PATIENT'S SON IS STILL AT THE PATIENT'S BEDSIDE. MAILS SUPERVISOR AND ER NURSE TRANSISTOR TESTER WERE MADE AWARE OF THE PHONE CALL FROM RADHA.
--- NOTE | 2021-04-20 09:05 | NUR ---
PT'S SON, WHO HAS MENTAL DISABILITY, CONTINUES TO LEAVE THE PATIENT'S ROOM, WANDER THE HALLWAYS. THE PATIENT'S SON IS REDIRECTABLE BACK TO THE PATIENT'S ROOM. WORD PROCESSING OPERATOR HAS BEEN NOTIFIED OF THE PATIENT'S SON WANDERING AROUND THE EMERGENCY ROOM AND BEING REDIRECTED BACK TO THE PATIENT'S ROOM AND THAT THE ER NURSES CANNOT BE RESPONSIBLE FOR THE PATIENT'S SON IN THE ER.
[2021-04-20 09:44] VITALS: BP 151/78
--- NOTE | 2021-04-20 10:15 | NUR ---
Pt is admitted to the hospital for chest pain on 04/20/21. Pt and adult disabled son live at a hotel presently ([facility]). Son is presently asleep on the floor of her hospital room as she is reporting she has no one to take care of him. Pt reports he is 25 years old. Pt just moved her from [place], [place] as she found a program here locally to help with her son ([facility]) and was attempting to get him enrolled in the programs/resources they provide. Pt's spouse just . She had been taking care of spouse and disabled son and has neglected her own health. No hx of HH/DME/SNF and has not seen a physician for quite sometime. CM to follow for discharge planning.
--- NOTE | 2021-04-20 11:11 | EKG ---
[place] [address] ELECTROCARDIOGRAM REPORT Name: DORA BLAND Room: [facility] M.R.#: [id number] Admission: 04/20/21 Attend Phys: German Parmar Discharge: Date of : 70 Date of Service: 04/19/212140 Report #: [id number] THIS REPORT FOR: //name// [facility] ED Test Date: 2021-04-19 Test Time: 21:41:07 Pat Name: DORA BLAND Department: Room: [facility] Gender: F Storage Wharfage Clerk: : 1970 Requested By: Fany Hendricks Order Number: [id number] MD: Clifford Ron Measurements Intervals [place] Rate: 118 P: 61 [place]: 152 QRS: -19 QRSD: 85 T: 135 QT: 298 QTc: 418 Interpretive Statements Sinus tachycardia Probable left atrial enlargement Borderline left axis deviation Abnormal R-wave progression, late transition Borderline repolarization abnormality Compared to ECG 05/06/2019 21:26:50 Sinus rate has increased Nonspecific ST-T changes persist Prolonged QT interval no longer present Electronically Signed On 04-20-2021 11:10:47 BUILDING OFFICIAL by Clifford Ron [email or web address] <ELECTRONICALLY SIGNED> By: Clifford Ron MD, [facility] 04/20/21 1110 40 40 Clifford Ron MD, [facility] /EPI
--- NOTE | 2021-04-20 11:11 | EKG ---
[place] [address] ELECTROCARDIOGRAM REPORT Name: DORA BLAND Room: [address] M.R.#: [id number] Admission: 04/20/21 Attend Phys: German Parmar Discharge: Date of : 70 Date of Service: 04/19/212246 Report #: [id number] THIS REPORT FOR: //name// [facility] ED Test Date: 2021-04-19 Test Time: 22:47:50 Pat Name: DORA BLAND Department: Room: [facility] Gender: F Engine Boss: [place] : 1970 Requested By: Fany Hendricks Order Number: [id number] MD: Clifford Ron Measurements Intervals [place] Rate: 105 P: 57 ND: 158 QRS: -18 QRSD: 88 T: 141 QT: 328 QTc: 434 Interpretive Statements Sinus tachycardia Probable left atrial enlargement Probable LVH with secondary repol abnrm Compared to ECG 04/19/2021 21:41:07 No significant changes Electronically Signed On 04-20-2021 11:11:14 ORGAN PIPE VOICER by Clifford Ron [email or web address] <ELECTRONICALLY SIGNED> By: Clifford Ron MD, [facility] 04/20/21 1111 2247 2247 Clifford Ron MD, [facility] /EPI
--- NOTE | 2021-04-20 12:47 | NUR ---
PT REQUESTING TO SPEAK TO A WRAPPER STRIPPER. BULMARO OTERO, PATIENT ADVOCATE, HAS SPOKEN TO THE PATIENT, LEFT MESSAGES WITH THE PATIENT'S DOCUMENTED NEXT OF KIN WITH NO ANSWER. THE PATIENT IS SITTING UPRIGHT ON THE SIDE OF THE ER BED WITH HER SON LAYING ON THE ER ROOM FLOOR WITH A BLANKET AND PILLOW. THE PATIENT IS SCHEDULED FOR CARDIAC STRESS TEST FOR 13:[address] HDEZ APPROVES THE PATIENT'S STRESS TEST RESULTS THEN THE PATIENT CAN GO HOME.
--- NOTE | 2021-04-20 13:15 | NUR ---
PT TO STRESS TEST AT THIS TIME.
--- NOTE | 2021-04-20 15:00 | NUR ---
PT RETURNED FROM NUCLEAR MEDICINE AT THIS TIME.
[2021-04-20 15:15] VITALS: BP 191/106
--- NOTE | 2021-04-20 15:38 | 2DMMODE ---
[place] [address] 2 D/M-MODE ECHOCARDIOGRAM Name: DORA BLAND Room: [address] Geetha#: [id number] Admission: 04/20/21 Attend Phys: German Parmar Discharge: Date of : 70 Date of Service: 04/20/21 1538 Report #: [id number] THIS REPORT FOR: cc: FAM - No family physician/PCP FAM - No family physician/PCP Clifford Ron MD [facility] ~ APPROVED REPORT Study performed: 04/20/2021 12:55:21 EXAM: Comprehensive 2D, Doppler, and color-flow Echocardiogram Patient Location: In-Patient Room #: ER Status: routine BSA: 1.95 HR: 93 bpm BP: 151/78 mmHg Rhythm: NSR Other Information Study Quality: Good Indications Chest Pain 2D Dimensions IVSd: 11.56 (7-11mm) LVOT Diam: 20.67 (18-24mm) LVDd: 48.75 mm PWd: 11.78 (7-11mm) Ascending Ao: 33.15 (22-36mm) LVDs: 28.64 (25-40mm) Aortic Root: 29.07 mm Volumes Left Atrial Volume (Systole) LA ESV Index: 40.20 mL/m2 Aortic Valve AoV Peak Eduard.: 3.50 m/s AO Peak Gr.: 48.88 mmHg LVOT Max P.09 mmHg AO Mean Gr.: 31.40 mmHg LVOT Mean P.96 mmHg LVOT Max V: 1.01 m/s AO V2 VTI: 69.27 cm LVOT Mean V: 0.64 m/s ARLEN (VTI): 1.00 cm2 LVOT V1 VTI: 20.71 [place] [address] 2 D/M-MODE ECHOCARDIOGRAM Name: DORA BLAND Room: [address] MLázaro#: [id number] Admission: 04/20/21 Attend Phys: German Parmar Discharge: Date of : 70 Date of Service: 04/20/21 1538 Report #: [id number] Mitral Valve E/A Ratio: 1.10 MV Decel. Time: 244.49 ms MV E Max Eduard.: 0.98 m/s MV PHT: 70.90 ms MVA (PHT): 3.10 cm2 TDI E/Lateral E': 10.89 E/Medial E': 9.80 Medial E' Eduard.: 0.10 m/s Lateral E' Eduard.: 0.09 m/s Pulmonary Valve PV Peak Eduard.: 1.08 m/s PV Peak Gr.: 4.63 mmHg Left Ventricle The left ventricle is normal size. There is normal LV segmental wall motion. There is normal left ventricular wall thickness. Left ventricular systolic function is normal. The left ventricular ejection fraction is within the normal range. LVEF is 60%. The left ventricular diastolic function is normal. Right Ventricle The right ventricle is normal size. The right ventricular systolic function is normal. Atria Left atrium is mildly dilated. The right atrium size is normal. Aortic Valve Moderate aortic valve sclerosis. Mild aortic regurgitation. Moderate aortic stenosis. Mitral Valve There is mitral annular calcification. Mild mitral regurgitation. No evidence of mitral valve stenosis. Tricuspid Valve The tricuspid valve is normal in structure. Unable to assess PA pressure. Trace tricuspid regurgitation. Pulmonic Valve The pulmonary valve is normal in structure. There is no pulmonic [place] [address] 2 D/M-MODE ECHOCARDIOGRAM Name: DORA BLAND Room: [address] Geetha#: [id number] Admission: 04/20/21 Attend Phys: German Parmar Discharge: Date of : 70 Date of Service: 04/20/21 1538 Report #: [id number] Great Vessels The aortic root is normal in size. IVC is normal in size and collapses >50% with inspiration. Pericardium There is no pericardial effusion. <Conclusion> The left ventricle is normal size. There is normal left ventricular wall thickness. Left ventricular systolic function is normal. The left ventricular ejection fraction is within the normal range. LVEF is 60%. The right ventricle is normal size. Left atrium is mildly dilated. Moderate aortic valve sclerosis. Mild aortic regurgitation. Moderate aortic stenosis. There is mitral annular calcification. Mild mitral regurgitation. The tricuspid valve is normal in structure. IVC is normal in size and collapses >50% with inspiration. There is no pericardial effusion. There is normal LV segmental wall motion. <ELECTRONICALLY SIGNED> By: Clifford Ron MD, FACC 04/20/21 1538 1538 1538 Clifford Ron MD, FACC /INF
--- NOTE | 2021-04-20 18:25 | NUR ---
REPORT CALLED AT THIS TIME.
[2021-04-20 18:50] VITALS: BP 172/88
[2021-04-20 20:02] VITALS: BP 162/82
[2021-04-21 00:40] VITALS: BP 120/71
[2021-04-21 02:06] LABS: GLYCOHEMOGLOBIN (HGB A1C) 8.8 % (4.8-5.6)
[2021-04-21 04:26] LABS: ABSOLUTE BASOPHILS 0.1 thou/uL (0.0-0.2); ABSOLUTE EOSINOPHILS 0.3 thou/uL (0.0-0.7); ABSOLUTE LYMPHOCYTES 2.9 thou/uL (0.8-5.3); ABSOLUTE MONOCYTES 0.5 thou/uL (0.0-1.2); BASOPHILS 0.8 %; EOSINOPHILS 3.8 %; HEMATOCRIT 38.7 % (37.0-47.0); HEMOGLOBIN 13.3 gm/dL (12.0-15.0); LYMPHOCYTES 37.6 %; MCH 28.1 pg (26.0-34.0); MCHC 34.5 g/dL (28.0-37.0); MCV 81.4 fL (80.0-100.0); MPV 6.9 fl. (7.2-11.1); NUCLEATED RBCS 0 /100WBC; PLATELET COUNT* 193 thou/uL (150-400); POLYS 50.8 %; RBC 4.75 mil/uL (4.20-5.00); WBC 7.8 thou/uL (4.0-11.0)
[2021-04-21 04:41] VITALS: BP 123/56
[2021-04-21 05:04] LABS: ANION GAP 8 mmol/L (7-16); BUN 12 mg/dL (7-18); CALCIUM 8.3 mg/dL (8.5-10.1); CHLORIDE 100 mmol/L (98-107); CHOLESTEROL 157 mg/dL (<200); CO2 30 mmol/L (21-32); CREATININE 0.7 mg/dL (0.6-1.3); GLUCOSE 234 mg/dL (70-99); HDL CHOLESTEROL 29 mg/dL (>40); POTASSIUM 3.8 mmol/L (3.5-5.1); SODIUM 138 mmol/L (136-145); TC:HDL 5.4 Ratio (Not establshd); TRIGLYCERIDE 686 mg/dL (<150); VLDL 137 mg/dL (<40)
--- NOTE | 2021-04-21 05:37 | NUR ---
SHIFT SUMMARY: PT A&O X4. PT HAS MENTALLY DISABLED SON STAYING THE NIGHT WITH PT, PT STATED WILL LEAVE AMA IF SON IS NOT ABLE TO STAY. PT C/O CP AND NAUSEA, MEDS GIVEN. PT STATED PAIN WAS RELIEVED BUT NAUSEA. PT GIVEN SALTINE CRACKERS AND GINGERALE. PT WAS GIVEN LUNCH BOX, PT STATED WAS HUNGRY. PT STATED WENT TO SLEEP AND SON ATE LUNCH BOX. PT ASKED IF PT COULD GET ANOTHER LUNCH BOX, BUT LUNCH BOXES WAS ALL SOLD OUT. PT VS STABLE, PT AFEBRILE. PT UP TO BR AD ANGELIQUE. PT RESTING AT THIS TIME, WILL CONT TO MONITOR.
[2021-04-21 06:50] LABS: SERUM ASSESSMENT Gross Lipemia
--- NOTE | 2021-04-21 09:06 | EKG ---
[place] [address] ELECTROCARDIOGRAM REPORT Name: DORA BLAND Room: [address] M.R.#: [id number] Admission: 04/20/21 Attend Phys: German Parmar Discharge: Date of : 70 Date of Service: 04/20/21 1049 Report #: [id number] THIS REPORT FOR: //name// [facility] ED Test Date: 2021-04-20 Test Time: 10:49:25 Pat Name: DORA BLNAD Department: Room: [address] Gender: F Setter Out: CD : 1970 Requested By: Julio Childs Order Number: [id number] MD: Clifford Ron Measurements Intervals [place] Rate: 98 P: 56 IN: 146 QRS: -14 QRSD: 86 T: 108 QT: 333 QTc: 426 Interpretive Statements Sinus rhythm Borderline repolarization abnormality Compared to ECG 04/19/2021 22:47:50 Sinus rate has slowed slightly Electronically Signed On 04-21-2021 9:06:11 [employer] by Clifford Ron [email or web address] <ELECTRONICALLY SIGNED> By: Clifford Ron MD, [facility] 04/21/21 0906 1049 1049 Clifford Ron MD, [facility] /EPI
[2021-04-21] MEDS ORDERED: LIPITOR40 MG PO (10:02)
[2021-04-21] MEDS ORDERED: METFORMIN HCL500 MG PO (10:02)
--- NOTE | 2021-04-21 12:54 | NUR ---
Pt is stable for discharge and needs resources. Dr. Roberts wrote a script for lancets to test blood sugars. Made a copy of script and placed on chart. Provided script to nurse. Also provided nurse with a cab voucher as pt is currently staying at the [facility] [place] with her adult disabled child who is currently at the hospital with her. 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 Discussed with pt again about having a back up plan for Adult Disabled child if she has to be admitted to the hospital again or looking into the future for when she may pass. Pt states she is integrating pt into [facility]. Provided pt with the following resources: *Safety Clinics: [facility], [facility] clinic, and [facility] clinic. *Transportation Resources: [place] Medicaid, [employer] [facility], [facility], [facility], and transportation resources to [facility], and [facility]. *Good Rx cards
[2021-04-21] MEDS ORDERED: TRAMADOL 50 MG50 MG PO (12:55)
[2021-04-21 13:22] VITALS: BP 123/56
--- NOTE | 2021-04-21 17:11 | CARDNUC ---
[place] [address] CARDIAC NUCLEAR IMAGING REPORT Name: DORA BLAND Room: [address] M.RMaximino#: [id number] Admission: 04/20/21 Attend Phys: German Parmar Discharge: 04/21/21 Date of : 70 Date of Service: 04/21/21 1710 Report #: [id number] THIS REPORT FOR: cc: FAM - No family physician/PCP FAM - No family physician/PCP Siva Lance MD [facility] ~ APPROVED REPORT Study performed: 04/20/2021 13:37:33 Exam: Nuclear Stress Test Indication: Chest pain Patient Location: In-Patient Ht: 5 ft 2 in Wt: 209 lbs BSA: 1.95 m2 BMI: 38.22 Medical History Medical History: CAD s/p stent, Atrial Fibrillation aortic stenosis Medications: plavix, diltiazem Allergies: multiple Cardiac Risk Factors: Age, DM, HTN, Hyperlipidemia Previous Cardiac Procedures: PCI Exercise History: Sedentary Stress Test Details Stress Test: Pharmacologic stress testing performed using 0.4 mg of regadenoson per 5 mL given IV over 10 seconds. Reason for pharmacologic stress test: physical limitation. HR Resting HR: 92 bpm Max Heart Rate (APMHR): 170 bpm Max HR Achieved: 119 bpm Target HR (85% APMHR): 144 bpm % of APMHR: 70 Recovery HR: 99 bpm BP Resting BP: 148/84 mmHg Max BP: 184/97 mmHg BP response to stress: Normal blood pressure response [place] [address] CARDIAC NUCLEAR IMAGING REPORT Name: BADLODORA ANN Room: [address] Geetha#: [id number] Admission: 04/20/21 Attend Phys: German Parmar Discharge: 04/21/21 Date of : 70 Date of Service: 04/21/21 1710 Report #: [id number] Resting ECG: Sinus rhythm Stress ECG: Sinus tachycardia ST Change: None Arrhythmia: None Recovery ECG: Sinus rhythm Recovery ST Change: None Recovery Arrhythmia: None Clinical Reason for Termination: Completed protocol The patient tolerated Lexiscan infusion without significant cardiac symptoms. Stress ECG Conclusion The baseline twelve-lead EKG showed sinus rhythm without significant ST segment abnormality. EKGs obtained during a post Lexiscan infusion show sinus rhythm and sinus tachycardia with no significant ST segment changes when compared to baseline. There were no significant stress-induced arrhythmias. NM EXAM: Myocardial Perfusion REST/STRESS Imaging Protocol: Incompleted 2-day study as patient refused second day scan Pharmacologic Stress Pharmacologic stress test was performed by injecting Regadenoson 0.4 mg IV push followed by the intravenous injection of 31.0 mCi of Tc-99m Sestamibi. Time of stress injection: 14:00 Date: 04/20/2021 Administration Route: IV Administration Site: Left Arm Gated Stress SPECT was performed 60 minutes after stress injection. The images were gated to evaluate regional wall motion and calculate left ventricular ejection fraction. Study Quality Study: Incomplete Study Data Post stress, the left ventricular ejection was 58%.. Perfusion Post-rest perfusion images show a moderate sized moderate to severe intensity defect involving [place] [address] CARDIAC NUCLEAR IMAGING REPORT Name: BALDODORA ANN Room: [address] Dionisio Iniguez#: [id number] Admission: 04/20/21 Attend Phys: German Parmar Discharge: 04/21/21 Date of : 70 Date of Service: 04/21/21 1710 Report #: [id number] Wall Motion Gated images show preserved left ventricular systolic function with some lateral wall motion abnormalities. Nuclear Conclusion ECG Findings: negative for ischemia Clinical Findings: negative for ischemia Nuclear Findings: Study not complete Exercise Capacity: not assessed Left Ventricular Function: Preserved Only stress images obtained that showed an inferolateral wall defect. No resting images were obtained as the patient refused the second a scan. Without resting images for comparison unable to completely interpret the test. Inferolateral defect suggests the possibility of infarct or ischemia involving this area. Global LV systolic function appears preserved. Recommend completed study at some point in time. <Conclusion> The baseline twelve-lead EKG showed sinus rhythm without significant ST segment abnormality. EKGs obtained during a post Lexiscan infusion show sinus rhythm and sinus tachycardia with no significant ST segment changes when compared to baseline. There were no significant stress-induced arrhythmias. <ELECTRONICALLY SIGNED> By: Siva Lance MD, FACC 04/21/211709 09 09 Siva Lance MD, FACC /INF
== END 2021-04-21 15:03 | disposition home or self-care (01) ==
LOC: M.ERS 21:34 → M.TBA-ER 04-20 01:44 → M.2W 04-20 19:48
PROVIDERS: Emergency Medicine; Internal Medicine; ADMIT Internal Medicine; ATTEND Internal Medicine
DX: R07.89 Other chest pain (principal); R79.89 Other specified abnormal findings of blood chemistry; R10.30 Lower abdominal pain, unspecified; Z20.822 Contact with and (suspected) exposure to COVID-19; I25.10 Atherosclerotic heart disease of native coronary artery without angina pectoris; E11.9 Type 2 diabetes mellitus without complications; I10 Essential (primary) hypertension; E78.00 Pure hypercholesterolemia, unspecified; E66.01 Morbid (severe) obesity due to excess calories; Z68.41 Body mass index [BMI] 40.0-44.9, adult; Z88.8 Allergy status to other drugs, medicaments and biological substances; Z88.0 Allergy status to penicillin; Z88.5 Allergy status to narcotic agent; Z86.79 Personal history of other diseases of the circulatory system; Z79.899 Other long term (current) drug therapy